=== PATIENT | male | born 1975 | race Caucasian/White ===

== ENCOUNTER → 2017-07-09 15:45 | Outpatient (CLI) | payer MEDICAID, MEDICARE, SELFPAY ==
[2017-07-09 17:19] LABS: Absolute Lymphocyte Count 2.49 X10^3/ul (0.83-4.51); Absolute Neutrophil Count 6.4 X10^3/uL (2.0-7.7); Basophil# 0.04 X10^3/uL; Basophil% 0.4 % (0-1); Hematocrit 49.4 % (40-54); Hemoglobin 16.8 g/dl (13.0-16.5); Lymphocyte # 2.49 X10^3/ul (4.0); Lymphocyte % 25.5 % (19-41); Mean Corpuscular Hgb 30.9 pg (27.0-32.0); Mean Corpuscular Volume 90.8 fL (80-94); Mean Platelet Vol. 10.1 fl (6.2-12.0); Monocyte# 0.67 X10^3/uL; Monocyte% 6.9 % (0-10); Neutrophil # 6.36 X10^3/uL (2.7-7.7); Neutrophil % 65.3 % (47-70); Platelet Count 261 K/mm3 (150-450); RBC Distribution Width CV 14.9 % (11.6-14.6); RBC Distribution Width SD 49.3 fl (35.1-43.9); Red Blood Count 5.44 M/mm3 (4.6-6.2); White Blood Count 9.8 K/mm3 (4.4-11.0)
[2017-07-09 17:21] LABS: POSITIVE COUNT NO; POSITIVE DIFFERENTIAL NO; POSITIVE MORPHOLOGY NO
[2017-07-09 17:52] LABS: ALB/GLOB Ratio 1.1 RATIO (0.9-2.4); AST(SGOT) 29 U/L (15-37); Alanine Aminotransfer ALT/SGPT 43 U/L (16-61); Albumin, Serum 3.7 g/dL (3.2-5.0); Alkaline Phosphatase 61 U/L (45-117); Anion Gap 9 (5-15); BUN 14 mg/dL (7-18); BUN/Creat Ratio 11.9 RATIO (10-20); Calcium,Total 8.3 mg/dL (8.5-10.1); Chloride 104 mmol/L (98-107); Creatinine, Serum 1.18 mg/dL (0.70-1.30); EST Glomerular Filtration Rate 72 mL/min (>60); Est Glom Filt Rate - Afr Amer 88 mL/min (>60); Globulin 3.3 g/dL (2.2-4.2); Glucose 112 mg/dL (74-106); Potassium 3.5 mmol/L (3.5-5.1); Sodium Level 139 mmol/L (136-145)
[2017-07-09 18:27] LABS: HIV - WCH Non-Reactive (Nonreactive)
[2017-07-09 19:23] LABS: Chlamydia Trachomatis by PCR Negative (Negative); Neisserai gonorrhoeae by PCR Negative (Negative); Probe Check PASS; Sample Adequacy Control PASS; Specimen Processing Control PASS
[2017-07-16 11:45] LABS: Rapid Plasmin Reagin (RPR) NONREACTIVE (NONREACTIVE)
== END ==
PROVIDERS: Family Provider Family Medicine; PCP Family Medicine; Visit Provider Family Medicine
DX: Z20.9 Contact with and (suspected) exposure to unspecified communicable disease (principal)
CPT/HCPCS: 36415; 80053; 85025; 86592; 86703; 87491; 87591

== ENCOUNTER 2017-07-10 00:33 | Emergency (ER) | payer MEDICARE, MEDICAID, SELFPAY ==
[2017-07-10 00:34] VITALS: BP 142/88; PULSE 67; RESP 16; TEMP 36.3; O2SAT 99; BMI 23.6
[2017-07-10 01:36] LABS: Mucous, Urine 0 SEEN /hpf (<or=2+); Red Blood Cells-Urine 0 SEEN /hpf (0-5); Squamous Epithelial Cells - UA 0 SEEN /hpf (0-5)
[2017-07-10 01:53] LABS: Color, Urine Yellow (Yellow); Glucose, Dipstick Normal (Normal); Ketone-Dipstick 5 mg/dl (Negative); Leukocyte Esterase-Dipstick 500 /ul (Negative); Nitrite-Dipstick Positive (Negative); Occult Blood-Urine 50 /ul (Negative); Protein-Dipstick 30 mg/dl (Negative); Urine Bilirubin Dipstick Negative (Negative); Urine Clarity Cloudy (Clear); Urine Urobilinogen Normal (Normal)
[2017-07-10 02:06] LABS: Bacteria 2+ /hpf (None Seen); White Blood Cells 50-100 SEEN /hpf (0-5)
--- NOTE | 2017-07-10 02:07 | ED.DCSUM_ITS ---
- ER Visit Summary Date of Service: 07/10/17 Chief Complaint: [] UTI symptoms History of Present Illness: The patient is a 41 M [] complaining of UTI symptoms. Patient reports having a history of multiple repeat UTIs as a result of urethral strictures. No other complaints at this time. Denies fevers. Physical Examination: [] Afebrile, vital signs stable. Abdomen is soft and nontender. Remainder of exam is unremarkable. Test Results: [] Urinalysis positive for UTI. Emergency Department Course and Treatment: [] Patient reports he requires fosfomycin 3 g every 3 days for 3 doses to overcome his UTIs. He will be provided this prescription upon discharge. On serial examination patient reports he needs something immediately and we do not have fosfomycin on formulary in this emergency department. He then request Bactrim despite having a reported allergy to sulfa. He reports him and his urologist used Bactrim with Benadryl and did not have any reaction. He is requesting Bactrim orally in the emerge department as well as Bactrim prescription for home. Treatment Plan: [] Discharge with outpatient antibiotic. Follow-up with PCP. Disposition: [] Discharge, stable. Impression: [] UTI This note was generated with [employer] dictation software. It may contain incorrect words, spelling, and punctuation that were not noted in review of the chart prior to signing ED Disposition - Plan for ED Patient: Disposition: Home or Assisted Living Chief Complaint: Complaint Instructions: ED UTI Cystitis Male Prescriptions: Fosfomycin Tromethamine [Monurol] 3 gm PO DAILY #3 packet Referrals: Arnulfo Medeiros DO [Primary Care Provider] -
--- NOTE | 2017-07-10 02:12 | DCINST.ED_ITS ---
ED Disposition - Plan for ED Patient: Disposition: Home or Assisted Living Chief Complaint: Complaint Instructions: ED UTI Cystitis Male Prescriptions: Fosfomycin Tromethamine [Monurol] 3 gm PO DAILY #3 packet Referrals: Arnulfo Medeiros DO [Primary Care Provider] -
[2017-07-10] MEDS: Smz/Tmp Ds Tablet 1 TABLET PO (02:48)
[2017-07-10 02:49] VITALS: PULSE 84; RESP 18; O2SAT 100
--- NOTE | 2017-07-12 11:06 | ED.RN ---
Pt urine culture reviewed by Dr White. No further action required.
== END 2017-07-10 02:50 | disposition home or self-care (01) ==
PROVIDERS: Emergency Provider Emergency Medicine; Family Provider Family Medicine; PCP Family Medicine
DX: N30.90 Cystitis, unspecified without hematuria (principal); B96.89 Other specified bacterial agents as the cause of diseases classified elsewhere; N35.9 Urethral stricture, unspecified; Z87.440 Personal history of urinary (tract) infections; Z79.899 Other long term (current) drug therapy; Z72.0 Tobacco use
CPT/HCPCS: 81001; 87077; 87086; 87088; 87186; 99283

== ENCOUNTER → 2017-07-13 09:57 | Outpatient (CLI) | payer MEDICARE, MEDICAID, SELFPAY | PROVIDERS: Family Provider Family Medicine; PCP Family Medicine; Visit Provider Family Medicine | DX: Z12.5 Encounter for screening for malignant neoplasm of prostate (principal); R10.2 Pelvic and perineal pain | CPT/HCPCS: 36415; 84153; G0103 ==

== ENCOUNTER → 2017-12-28 12:57 | Outpatient (CLI) | payer MEDICARE, MEDICAID, SELFPAY | PROVIDERS: Family Provider Family Medicine; PCP Family Medicine; Visit Provider Family Medicine | DX: Z00.00 Encounter for general adult medical examination without abnormal findings (principal); R73.9 Hyperglycemia, unspecified; E29.1 Testicular hypofunction; G25.81 Restless legs syndrome; R74.8 Abnormal levels of other serum enzymes; Z20.9 Contact with and (suspected) exposure to unspecified communicable disease; Z79.899 Other long term (current) drug therapy ==

== ENCOUNTER → 2017-12-30 07:49 | Outpatient (CLI) | payer MEDICARE, MEDICAID, SELFPAY ==
[2017-12-30 09:02] LABS: Absolute Lymphocyte Count 2.98 X10^3/ul (0.83-4.51); Absolute Neutrophil Count 3.8 X10^3/uL (2.0-7.7); Basophil# 0.02 X10^3/uL; Basophil% 0.3 % (0-1); Eosinophils% 2.6 % (0-5); Hematocrit 54.5 % (40-54); Hemoglobin 18.6 g/dl (13.0-16.5); Lymphocyte # 2.98 X10^3/ul (4.0); Mean Corp Hgb Conc 34.1 g/gl (32-36); Mean Corpuscular Volume 90.8 fL (80-94); Monocyte# 0.64 X10^3/uL; Monocyte% 8.4 % (0-10); Neutrophil # 3.78 X10^3/uL (2.7-7.7); Neutrophil % 49.4 % (47-70); Platelet Count 179 K/mm3 (150-450); RBC Distribution Width CV 13.7 % (11.6-14.6); RBC Distribution Width SD 45.3 fl (35.1-43.9); White Blood Count 7.6 K/mm3 (4.4-11.0)
[2017-12-30 09:09] LABS: POSITIVE COUNT NO; POSITIVE DIFFERENTIAL NO; POSITIVE MORPHOLOGY NO
[2017-12-30 09:16] LABS: Hemoglobin A1c 5.7 % (4.2-6.3)
[2017-12-30 09:36] LABS: ALB/GLOB Ratio 1.3 RATIO (0.9-2.4); AST(SGOT) 40 U/L (15-37); Alanine Aminotransfer ALT/SGPT 56 U/L (16-61); Albumin, Serum 4.1 g/dL (3.2-5.0); Alkaline Phosphatase 40 U/L (45-117); Anion Gap 4 (5-15); BUN 15 mg/dL (7-18); BUN/Creat Ratio 13.4 RATIO (10-20); Calcium,Total 8.7 mg/dL (8.5-10.1); Chloride 107 mmol/L (98-107); Cholesterol 169 mg/dL (200); Creatinine, Serum 1.12 mg/dL (0.70-1.30); EST Glomerular Filtration Rate 77 mL/min (>60); Est Glom Filt Rate - Afr Amer 93 mL/min (>60); Estradiol 46.9 pg/mL; Globulin 3.1 g/dL (2.2-4.2); Glucose 99 mg/dL (74-106); High Density Lipoprotein 31 mg/dL; Potassium 4.2 mmol/L (3.5-5.1); Protein, Total 7.2 g/dL (6.4-8.2); Sodium Level 140 mmol/L (136-145); Thyroid Stim Hormone (TSH) 1.55 uIU/mL (0.358-3.74); Triglycerides 111 mg/dL; Very Low Density Lipoprotein 22 mg/dL (5-40)
[2017-12-30 13:32] LABS: Chlamydia Trachomatis by PCR Negative (Negative); Neisserai gonorrhoeae by PCR Negative (Negative); Probe Check PASS; Sample Adequacy Control PASS; Specimen Processing Control PASS
[2017-12-31 00:19] LABS: Rapid Plasmin Reagin (RPR) NONREACTIVE (NONREACTIVE)
[2017-12-31 10:54] LABS: HIV - WCH Non-Reactive (Nonreactive)
[2018-01-07 09:57] LABS: Testosterone, Total 1142 ng/dL (264-916)
== END ==
PROVIDERS: Family Provider Family Medicine; PCP Family Medicine; Visit Provider Family Medicine
DX: Z00.00 Encounter for general adult medical examination without abnormal findings (principal); Z20.9 Contact with and (suspected) exposure to unspecified communicable disease; E29.1 Testicular hypofunction; G25.81 Restless legs syndrome; R74.8 Abnormal levels of other serum enzymes; R73.9 Hyperglycemia, unspecified; Z79.899 Other long term (current) drug therapy
CPT/HCPCS: 36415; 80053; 80061; 82670; 83036; 84402; 84403; 84443; 85025; 86592; 86703; 87491; 87591

== ENCOUNTER → 2018-08-04 10:18 | Outpatient (CLI) | payer MEDICARE, SELFPAY ==
[2018-08-04 12:23] LABS: Absolute Neutrophil Count 5.3 X10^3/uL (2.0-7.7); Basophil# 0.02 X10^3/uL; Basophil% 0.2 % (0-1); Eosinophil# 0.07 X10^3/uL; Eosinophils% 0.7 % (0-5); Hemoglobin 16.2 g/dl (13.0-16.5); Lymphocyte % 33.1 % (19-41); Mean Corp Hgb Conc 33.1 g/gl (32-36); Mean Corpuscular Hgb 31.5 pg (27.0-32.0); Mean Corpuscular Volume 95.3 fL (80-94); Mean Platelet Vol. 9.7 fl (6.2-12.0); Monocyte# 0.77 X10^3/uL; Monocyte% 8.2 % (0-10); Neutrophil # 5.34 X10^3/uL (2.7-7.7); Neutrophil % 57.2 % (47-70); Platelet Count 220 K/mm3 (150-450); RBC Distribution Width CV 14.9 % (11.6-14.6); RBC Distribution Width SD 52.2 fl (35.1-43.9); Red Blood Count 5.14 M/mm3 (4.6-6.2); White Blood Count 9.4 K/mm3 (4.4-11.0)
[2018-08-04 12:32] LABS: POSITIVE COUNT NO; POSITIVE DIFFERENTIAL NO; POSITIVE MORPHOLOGY NO
[2018-08-04 12:42] LABS: ALB/GLOB Ratio 1.6 RATIO (0.9-2.4); AST(SGOT) 38 U/L (15-37); Alanine Aminotransfer ALT/SGPT 55 U/L (16-61); Albumin, Serum 4.4 g/dL (3.2-5.0); Alkaline Phosphatase 36 U/L (45-117); Anion Gap 9 (5-15); BUN 15 mg/dL (7-18); BUN/Creat Ratio 14.4 RATIO (10-20); Calcium,Total 8.6 mg/dL (8.5-10.1); Chloride 107 mmol/L (98-107); Cholesterol 193 mg/dL (200); Creatinine, Serum 1.04 mg/dL (0.70-1.30); EST Glomerular Filtration Rate 83 mL/min (>60); Est Glom Filt Rate - Afr Amer 101 mL/min (>60); Globulin 2.8 g/dL (2.2-4.2); Glucose 97 mg/dL (74-106); High Density Lipoprotein 52 mg/dL; Potassium 3.6 mmol/L (3.5-5.1); Protein, Total 7.2 g/dL (6.4-8.2); Sodium Level 140 mmol/L (136-145); Triglycerides 57 mg/dL; Very Low Density Lipoprotein 11 mg/dL (5-40)
[2018-08-04 13:24] LABS: HIV - WCH Non-Reactive (Nonreactive)
[2018-08-04 15:36] LABS: Chlamydia Trachomatis by PCR Negative (Negative); Neisserai gonorrhoeae by PCR Negative (Negative); Probe Check PASS; Sample Adequacy Control PASS; Specimen Processing Control PASS
[2018-08-05 01:32] LABS: Rapid Plasmin Reagin (RPR) NONREACTIVE (NONREACTIVE)
[2018-08-07 20:06] LABS: Testosterone, Free 19.06 ng/dL (5.00-21.00)
[2018-08-08 09:04] LABS: Testosterone, % Free 3.53 % (1.50-4.20); Testosterone, Total 540 ng/dL (264-916)
== END ==
PROVIDERS: Family Provider Family Medicine; PCP Family Medicine; Visit Provider Family Medicine
DX: Z20.9 Contact with and (suspected) exposure to unspecified communicable disease (principal); Z72.51 High risk heterosexual behavior; E29.1 Testicular hypofunction; E78.5 Hyperlipidemia, unspecified; R74.8 Abnormal levels of other serum enzymes; R07.9 Chest pain, unspecified; D58.2 Other hemoglobinopathies; Z79.899 Other long term (current) drug therapy
CPT/HCPCS: 36415; 80053; 80061; 84402; 84403; 84484; 85025; 86592; 86703; 87491; 87591

== ENCOUNTER → 2018-08-30 12:07 | Outpatient (CLI) | payer MEDICARE, OTHER, SELFPAY ==
--- NOTE | 2018-08-30 12:17 | EKG12_ITS ---
Test Reason : CP Blood Pressure : / mmHG Vent. Rate : 062 BPM Atrial Rate : 062 BPM P-R Int : 218 ms QRS Dur : 100 ms QT Int : 400 ms P-R-T Axes : 063 085 052 degrees QTc Int : 406 ms Sinus rhythm with sinus arrhythmia with 1st degree A-V block Otherwise normal ECG Confirmed by TEO SCHUSTER, FEDERICO ([id number]), health editor DOUGLAS JNOES ([id number]) on 09/02/2018 11:37:34 AM Referred By: Arnulfo Medeiros Confirmed By:FEDERICO BRUCE MD
== END ==
PROVIDERS: Family Provider Family Medicine; PCP Family Medicine; Referring Provider Family Medicine; Visit Provider Family Medicine
DX: R07.9 Chest pain, unspecified (principal)
CPT/HCPCS: 93005

== ENCOUNTER 2019-01-10 10:00 | Outpatient (RCR) | payer OTHER, SELFPAY ==
--- NOTE | 2019-01-04 12:39 | HP.PTEVAL ---
Patient's Visit Information SCOTT NAZARIO is a 43 year old M referred to Physical Therapy by Guero Frye MD with a diagnosis of RADICULOPATHY CERVICAL REGION. Date of Evaluation: 01/04/19 Physical Therapist: Carlos Corrales, PT, Cert MDT, OCS - Visit Plan Frequency: 1-2x /Week Duration: 4 Weeks Plan: PT INTERVENTIONS MCENZIE EX'S,POSTURAL EX'S,MANUAL THERAPY ,ICTX 18-22# X15MIN - Subjective Findings: This 43 y/o male presents to physical therapy with cervical radiculopathy. Patient has had pain for 2 years . But past 3 1/2 weeks noticed pain right cervical spine /UT and right. Patient has had injection in shoulder which helped pain. Pateint seen Dr campbell ,tried MEDROL pack ,naproxen,muscle relaxers. Pateint had x-rays cervical DDD . Pateint denies parathesia/tingling. Pateint pain affects sleeping. Patient PIÑA/nausea/tinnutis. Aggravated repeated activity with shoulder ,lifting pushing exercises . Alleviating factors meds rest. Pateint affects job demnads,ADLSs' . Pateint affects QOL. 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 SOCIAL: SINGLE - Pain Right Shoulder Pain Intensity (Out of 10): 3 Pain Intensity Range: 10, N/A Right Neck Pain Intensity (Out of 10): 0 Pain Intensity Range: 10 - Objective POSTURE: rounded shoulders. PALPATION: long biceps tender. NEURO: intact ,reflexes C5-6-7 2/3,MYTOMES INTACT. MMT: 5/5 RTC/DELTOID. CERVICAL ROM: flexion min loss,lteral flexion /rotation min loss,retraction min loss - Special Tests C/S Radiculapathy - Left Upper limb tension test: Negative C/S Radiculapathy - Right Upper limb tension test: Negative C/S Radiculapathy - Left Spurlings: Negative C/S Radiculapathy - Left Cervical distraction: Negative C/S Radiculapathy - Right Cervical distraction: Negative Sharp Ren: Negative Vertebral Artery Test: Negative Alar Ligament Test: Negative Cervical Sitting: Protrusion - Mechanical Response: No effect Cervical Sitting: Protrusion - Symptoms During Testing: No effect Cervical Sitting: Protrusion - Symptoms After Testing: No effect Cervical Sitting: Retraction - Mechanical Response: No effect Cervical Sitting: Retraction - Symptoms During Testing: Decreases Cervical Sitting: Retraction - Symptoms After Testing: Better Cervical Sitting: Retraction-Extension - Mechanical Response: No effect Cerv Sitting: Retraction-Extension - Symptoms During Testing: Decreases Cerv Sitting: Retraction-Extension - Symptoms After Testing: Better R Shoulder External Rotation Lag Test - RC Tear: Negative R Shoulder Supine Impingement Test - RC Tear: Negative R Shoulder Drop Sign - IS Test: Negative R Shoulder Empty Can - SS: Negative R Shoulder Belly Press - SupScap: Negative R Shoulder Neer - Impingement: Negative R Shoulder Mark Willy - Impingement: Negative - Goals Goal 1:: Independant with HEP Goal Time Frame: 2-4 Weeks Goal 2:: Patient to improve posture for ADLS' Goal Time Frame: 2-4 Weeks Goal 3:: Patient to increase cervical ROM for function of recovery Goal Time Frame: 2-4 Weeks Goal 4:: Patient to be d/c to prophrolaxis Goal Time Frame: 2-4 Weeks Goal 5:: Patient to improve neck owestry score by 5 points to improve QOL. Goal Time Frame: 2-4 Weeks - Rehabilitation Potential Physical Therapy Diagnosis: This patient has possible cervical derrangement along with h/o tendonitis of right shoulder. , patient responded well with posture correction,rectraction ,RTC 5/5 ,mytomes intact,flexion increase symptom sright shoulder UT. Rehabilitation Potential: Good - Anticipated Interventions Patient/Client Instruction: Educate patient on: Condition, Plan of Care For the Purpose of:: To decrease pain, To increase ROM, To improve muscle performance and motor function, To improve ability to perform ADL's, To increase tolerance to activity/condition/position, To improve ability of physical actions for home/community/work/leisure, To improve ability to perform tasks related to life management Therapeutic Exercise to Include: Strength training, Postural training, Flexibilty training, Ham Exercises For the Purpose of:: To decrease pain, To increase ROM, To improve muscle performance and motor function, To increase tolerance to activity/condition/position, To improve ability of physical actions for home/community/work/leisure, To improve health of tissue, To decrease soft tissue restriction, To reduce risk of recurrence, To improve ability to perform tasks related to life management Manual Therapy Techniques to Include: Mobilization, Soft tissue mobilization For the Purpose of:: To decrease pain, To increase ROM, To improve health of tissue, To decrease soft tissue restriction TENS: Yes IF ES: Yes Cryotherapy (ice pack, ice massage): Yes Ultrasound (thermal/non thermal): Yes Intermittent cervical traction: Yes - 18-# For the Purpose of:: To decrease pain, To improve nutrient delivery to tissue, To increase oxygenation perfusion, To improve health of tissue, To decrease soft tissue restriction Thank you for the opportunity to evaluate your patient. For Medicare and Medicare HMO plans, please review the plan of care and approve it. It will need to be FAXED BACK to us at [phone] for Medicare purposes. For Medicare only, by signing this I certify the plan of care. Please let me know if there are questions or concerns regarding this plan of care. Physician Signature: Date:
--- NOTE | 2019-03-16 11:51 | HP.PTDCNRP_ITS ---
HP - Discharge Summary (1) - Patient Information SCOTT NAZARIO was seen in my office for initial evaluation on 01/04/19. The following Plan of Care was established for this patient: Initial Frequency: 1-2x /Week Initial Duration: 4 Weeks - Anticipated Interventions Patient/Client Instruction: Educate patient on: Condition, Plan of Care For the Purpose of:: To decrease pain, To increase ROM, To improve muscle pe rformance and motor function, To improve ability to perform ADL's, To increase tolerance to activity/condition/position, To improve ability of physical actions for home/community/work/leisure, To improve ability to perform tasks related to life management Therapeutic Exercise to Include: Strength training, Postural training, Flexibilty training, Ham Exercises For the Purpose of:: To decrease pain, To increase ROM, To improve muscle performance and motor function, To increase tolerance to activity/condition/position, To improve ability of physical actions for home/community/work/leisure, To improve health of tissue, To decrease soft tissue restriction, To reduce risk of recurrence, To improve ability to perform tasks related to life management Manual Therapy Techniques to Include: Mobilization, Soft tissue mobilization For the Purpose of:: To decrease pain, To increase ROM, To improve health of tissue, To decrease soft tissue restriction TENS: Yes IF ES: Yes Cryotherapy (ice pack, ice massage): Yes Ultrasound (thermal/non thermal): Yes Intermittent cervical traction: Yes - 18-22# For the Purpose of:: To decrease pain, To improve nutrient delivery to tissue, To increase oxygenation perfusion, To improve health of tissue, To decrease soft tissue restriction This patient was last seen in our office . Pertinent comments regarding their Physical therapy will appear below: Pateint seen for PT for cervical pain ,and plans to return to for possibel MRI. At this point I will be discontinuing this patient from physical therapy. I would be happy to see this patient again in the future if found appropriate by the physician. Thank you! Carlos Corrales, PT, Cert MDT, OCS
== END 2019-01-10 19:00 | disposition home or self-care (01) ==
LOC: PT 10:00
PROVIDERS: Family Provider Family Medicine; PCP Family Medicine; Referring Provider Orthopaedic Surgery; Visit Provider Orthopaedic Surgery
DX: M54.12 Radiculopathy, cervical region (principal)
CPT/HCPCS: 97012; 97110; 97161

== ENCOUNTER → 2019-06-30 09:02 | Outpatient (CLI) | payer OTHER, SELFPAY ==
[2019-06-30 12:43] LABS: Absolute Lymphocyte Count 2.52 X10^3/uL (0.83-4.51); Absolute Neutrophil Count 4.1 X10^3/uL (2.0-7.7); Basophil# 0.05 X10^3/uL; Basophil% 0.7 % (0-1); Eosinophil# 0.14 X10^3/uL; Eosinophils% 1.9 % (0-5); Hematocrit 52.9 % (40-54); Hemoglobin 17.1 g/dL (13.0-16.5); Lymphocyte # 2.52 X10^3/ul (4.0); Lymphocyte % 33.9 % (19-41); Mean Corp Hgb Conc 32.3 g/dL (32-36); Mean Corpuscular Hgb 31.3 pg (27.0-32.0); Mean Corpuscular Volume 96.7 fL (80-94); Mean Platelet Vol. 9.2 fl (6.2-12.0); Monocyte# 0.63 X10^3/uL; Monocyte% 8.5 % (0-10); NRBC Flagged by Analyzer 0 % (0-5); Neutrophil # 4.07 X10^3/uL (2.7-7.7); Neutrophil % 54.6 % (47-70); Platelet Count 214 K/mm3 (150-450); RBC Distribution Width CV 14.4 % (11.6-14.6); Red Blood Count 5.47 M/mm3 (4.6-6.2); White Blood Count 7.4 K/mm3 (4.4-11.0)
[2019-06-30 13:51] LABS: HIV - WCH Non-Reactive (Nonreactive)
[2019-06-30 14:22] LABS: ALB/GLOB Ratio 1.4 RATIO (0.9-2.4); AST(SGOT) 55 U/L (15-37); Alanine Aminotransfer ALT/SGPT 72 U/L (16-61); Albumin, Serum 4.2 g/dL (3.2-5.0); Alkaline Phosphatase 32 U/L (45-117); Anion Gap 6 (5-15); BUN 18 mg/dL (7-18); BUN/Creat Ratio 16.1 RATIO (10-20); CPK Total, Creatine Kinase 705 U/L (39-308); Calcium,Total 9.1 mg/dL (8.5-10.1); Chloride 106 mmol/L (98-107); Cholesterol 205 mg/dL (200); Creatinine, Serum 1.12 mg/dL (0.70-1.30); EST Glomerular Filtration Rate 76 mL/min (>60); Est Glom Filt Rate - Afr Amer 92 mL/min (>60); Estradiol 22.4 pg/mL; Glucose 89 mg/dL (74-106); High Density Lipoprotein 50 mg/dL; Potassium 3.7 mmol/L (3.5-5.1); Protein, Total 7.2 g/dL (6.4-8.2); Sodium Level 137 mmol/L (136-145); Triglycerides 66 mg/dL; Very Low Density Lipoprotein 13 mg/dL (5-40)
[2019-06-30 17:56] LABS: Chlamydia Trachomatis by PCR Negative (Negative); Neisserai gonorrhoeae by PCR Negative (Negative); Probe Check PASS; Sample Adequacy Control PASS; Specimen Processing Control PASS
[2019-07-03 20:08] LABS: Testosterone, Free 18.23 ng/dL (5.00-21.00)
[2019-07-03 21:08] LABS: Testosterone, % Free 3.17 % (1.50-4.20); Testosterone, Total 575 ng/dL (264-916)
[2019-07-06 03:50] LABS: Rapid Plasmin Reagin (RPR) NONREACTIVE (NONREACTIVE)
== END ==
LOC: LAB.FUTURE 09:04 → BFHLAB 11:34
PROVIDERS: Family Provider Family Medicine; PCP Family Medicine; Visit Provider Family Medicine
DX: E29.1 Testicular hypofunction (principal); R74.8 Abnormal levels of other serum enzymes; Z20.9 Contact with and (suspected) exposure to unspecified communicable disease; Z79.899 Other long term (current) drug therapy
CPT/HCPCS: 36415; 80053; 80061; 82550; 82670; 84402; 84403; 85025; 86592; 86703; 87491; 87591

== ENCOUNTER → 2020-02-12 11:38 | Outpatient (CLI) | payer OTHER, SELFPAY ==
[2020-02-12 15:30] LABS: Absolute Lymphocyte Count 1.04 X10^3/uL (0.83-4.51); Absolute Neutrophil Count 1.8 X10^3/uL (2.0-7.7); Basophil# 0.03 X10^3/uL; Basophil% 0.9 % (0-1); Eosinophil# 0.04 X10^3/uL; Eosinophils% 1.2 % (0-5); Hematocrit 53.4 % (40-54); Lymphocyte # 1.04 X10^3/ul (4.0); Lymphocyte % 32.1 % (19-41); Mean Corp Hgb Conc 33.9 g/dL (32-36); Mean Corpuscular Hgb 32.3 pg (27.0-32.0); Mean Corpuscular Volume 95.2 fL (80-94); Mean Platelet Vol. 11.5 fl (6.2-12.0); Monocyte# 0.32 X10^3/uL; Monocyte% 9.9 % (0-10); NRBC Flagged by Analyzer 0 % (0-5); Neutrophil # 1.78 X10^3/uL (2.7-7.7); Platelet Count 104 K/mm3 (150-450); RBC Distribution Width SD 49.7 fl (35.1-43.9); Red Blood Count 5.61 M/mm3 (4.6-6.2); White Blood Count 3.2 K/mm3 (4.4-11.0)
[2020-02-12 15:44] LABS: Hemoglobin 18.1 g/dL (13.0-16.5)
[2020-02-12 15:50] LABS: Anion Gap 6 (5-15); BUN 18 mg/dL (7-18); BUN/Creat Ratio 13.7 RATIO (10-20); Calcium,Total 8.5 mg/dL (8.5-10.1); Chloride 105 mmol/L (98-107); Creatinine, Serum 1.31 mg/dL (0.70-1.30); EST Glomerular Filtration Rate 63 mL/min (>60); Est Glom Filt Rate - Afr Amer 77 mL/min (>60); Estradiol 21.8 pg/mL; Glucose 113 mg/dL (74-106); Potassium 4.4 mmol/L (3.5-5.1); Sodium Level 136 mmol/L (136-145)
[2020-02-13 09:23] LABS: CPK Total, Creatine Kinase 503 U/L (39-308)
== END ==
PROVIDERS: PCP Family Medicine; Visit Provider Family Medicine
DX: E29.1 Testicular hypofunction (principal); Z79.899 Other long term (current) drug therapy; Z51.81 Encounter for therapeutic drug level monitoring
CPT/HCPCS: 36415; 80048; 82550; 82670; 83003; 84402; 84403; 84484; 85025

== ENCOUNTER → 2020-02-14 16:02 | Outpatient (CLI) | payer OTHER, SELFPAY ==
[2020-02-13 08:54] VITALS: BMI 23.6
[2020-02-14 16:54] LABS: Absolute Lymphocyte Count 4.09 X10^3/uL (0.83-4.51); Absolute Neutrophil Count 3.7 X10^3/uL (2.0-7.7); Basophil# 0.12 X10^3/uL; Basophil% 1.4 % (0-1); Eosinophil# 0.07 X10^3/uL; Eosinophils% 0.8 % (0-5); Hematocrit 50.2 % (40-54); Hemoglobin 17.1 g/dL (13.0-16.5); Lymphocyte # 4.09 X10^3/ul (4.0); Lymphocyte % 46.7 % (19-41); Mean Corp Hgb Conc 34.1 g/dL (32-36); Mean Corpuscular Hgb 31.7 pg (27.0-32.0); Mean Corpuscular Volume 93.1 fL (80-94); Mean Platelet Vol. 10.2 fl (6.2-12.0); NRBC Flagged by Analyzer 0 % (0-5); Neutrophil # 3.71 X10^3/uL (2.7-7.7); Neutrophil % 42.4 % (47-70); POSITIVE MORPHOLOGY YES; Platelet Count 128 K/mm3 (150-450); RBC Distribution Width CV 13.8 % (11.6-14.6); RBC Distribution Width SD 47.6 fl (35.1-43.9); Red Blood Count 5.39 M/mm3 (4.6-6.2); White Blood Count 8.8 K/mm3 (4.4-11.0)
[2020-02-14 16:56] LABS: Differential Indicated SCAN CRITERIA MET
[2020-02-14 17:19] LABS: Differential Comment SCANNED
[2020-02-14 17:20] LABS: Erythrocyte Sedimentation Rate 7 mm/hr (0-15)
[2020-02-14 17:49] LABS: CPK Total, Creatine Kinase 494 U/L (39-308); CRP 4.58 mg/L (0.0-3.0)
[2020-02-14 19:29] LABS: HIV - WCH Non-Reactive (Nonreactive)
== END ==
PROVIDERS: PCP Family Medicine; Visit Provider Family Medicine
DX: D72.819 Decreased white blood cell count, unspecified (principal); R74.8 Abnormal levels of other serum enzymes; Z20.9 Contact with and (suspected) exposure to unspecified communicable disease
CPT/HCPCS: 36415; 82550; 85025; 85652; 86140; 86703

== ENCOUNTER 2020-04-29 10:13 | Day surgery (SDC) | payer OTHER, SELFPAY ==
[2020-02-13 08:54] VITALS: BMI 23.6
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
[2020-04-26 15:41] LABS: Probe Check PASS; Specimen Processing Control PASS
[2020-04-29 10:42] VITALS: BP 141/68; PULSE 84; RESP 16; TEMP 37.4; O2SAT 97; BMI 26.4
[2020-04-29] MEDS: Lactated Ringers 1,000 ML 100 ML IV (11:05)
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
[2020-04-29 11:37] VITALS: BP 115/75; BP 141/68; PULSE 86; RESP 16; TEMP 36.6; O2SAT 96
--- NOTE | 2020-04-29 11:38 | OP.CCLET_ITS ---
04/29/2020 Arnulfo Medeiros [address] [place] [address] Re : Colonoscopy procedure for Michael Pina Dear Dr. Medeiros This procedure was performed on Wednesday, April 29, 2020. My impressions and recommendations are as follows: Impressions : - Non-bleeding internal hemorrhoids. - The examination was otherwise normal. - No specimens collected. Recommendations : - Discharge patient to home. - Resume previous diet. - Continue present medications. - Repeat colonoscopy in 10 years for screening purposes. - Return to primary care physician (date not yet determined). My findings are described in the full procedure note, which is enclosed. If I can be of further assistance, please feel free to contact me at Doctor phone number(s): , Fax: [phone], Work: . Sincerely, MD Raymundo Hopkins MD 04/29/2020 11:37:48 AM This report has been signed electronically.
--- NOTE | 2020-04-29 11:38 | OP.COLON_ITS ---
Patient Name: Michael Pina Procedure Date: 04/29/2020 11:09 AM Date of : 1975 Age: 44 Procedure: Colonoscopy Indications: Rectal bleeding Providers: Raymundo Rao MD Referring MD: Arnulfo Medeiros Medicines: See the Anesthesia note for documentation of the administered medications Patient Profile: This is a 44 year old male. Refer to note in patient chart for documentation of history and physical. Last Colonoscopy: none. The patient's first colonoscopy is today. Complications: No immediate complications. Procedure: Pre-Anesthesia Assessment: - Prior to the procedure, a History and Physical was performed, and patient medications and allergies were reviewed. The patient's tolerance of previous anesthesia was also reviewed. The risks and benefits of the procedure and the sedation options and risks were discussed with the patient. All questions were answered, and informed consent was obtained. Prior Anticoagulants: The patient has taken no previous anticoagulant or antiplatelet agents. ASA Grade Assessment: II - A patient with mild systemic disease. After reviewing the risks and benefits, the patient was deemed in satisfactory condition to undergo the procedure. After I obtained informed consent, the scope was passed under direct vision. Throughout the procedure, the patient's blood pressure, pulse, and oxygen saturations were monitored continuously. The colonoscope was introduced through the anus and advanced to the cecum, identified by appendiceal orifice and ileocecal valve. The colonoscopy was performed without difficulty. The patient tolerated the procedure well. The quality of the bowel preparation was good. Scope In: 11:21:29 AM Scope Withdrawal Time 0 hours 6 minutes 4 seconds Scope Out: 11:32:42 AM Total Procedure Duration Time 0 hours 11 minutes 13 seconds Findings: Non-bleeding internal hemorrhoids were found during retroflexion. The hemorrhoids were mild and small. The exam was otherwise without abnormality. Impression: - Non-bleeding internal hemorrhoids. - The examination was otherwise normal. - No specimens collected. Recommendation: - Discharge patient to home. - Resume previous diet. - Continue present medications. - Repeat colonoscopy in 10 years for screening purposes. - Return to primary care physician (date not yet determined). Procedure Code(s): --- Professional --- 97487, Colonoscopy, flexible; diagnostic, including collection of specimen(s) by brushing or washing, when performed (separate procedure) Diagnosis Code(s): --- Professional --- K64.8, Other hemorrhoids K62.5, Hemorrhage of anus and rectum CPT copyright 2017 [employer]. All rights reserved. The codes documented in this report are preliminary and upon invoice coder review may be revised to meet current compliance requirements. MD Raymundo Hopkins MD 04/29/2020 11:37:48 AM This report has been signed electronically. Number of Addenda: 0 Note Initiated On: 04/29/2020 11:09 AM
[2020-04-29 11:40] VITALS: BP 104/74; BP 141/68; PULSE 87; RESP 16; O2SAT 96
[2020-04-29 11:45] VITALS: BP 118/71; BP 141/68; PULSE 86; RESP 16; O2SAT 95
[2020-04-29 11:50] VITALS: BP 114/74; BP 141/68; PULSE 85; RESP 16; TEMP 36.5; O2SAT 97
[2020-04-29 12:02] VITALS: BP 141/68
== END 2020-04-29 12:22 | disposition home or self-care (01) ==
LOC: EN 10:14 → AC 10:15
PROVIDERS: Anesthesiology; PCP Family Medicine; Referring Provider Family Medicine; Visit Provider Surgery
PROC: 0DJD8ZZ Inspection of Lower Intestinal Tract, Via Natural or Artificial Opening Endoscopic (ICD-10-PCS; CPT 45378; principal; 2020-04-29 11:10)
DX: K64.8 Other hemorrhoids (principal); K91.2 Postsurgical malabsorption, not elsewhere classified; F41.9 Anxiety disorder, unspecified; H55.01 Congenital nystagmus; G25.81 Restless legs syndrome; K21.9 Gastro-esophageal reflux disease without esophagitis; J45.909 Unspecified asthma, uncomplicated; G47.00 Insomnia, unspecified; F17.210 Nicotine dependence, cigarettes, uncomplicated; Z20.828 Contact with and (suspected) exposure to other viral communicable diseases; Z79.51 Long term (current) use of inhaled steroids; Z79.82 Long term (current) use of aspirin; Z79.899 Other long term (current) drug therapy
CPT/HCPCS: 45378; 87426; 87635; C9803; J7120; J1610; J2405; U0002

== ENCOUNTER → 2020-05-28 09:09 | Outpatient (CLI) | payer OTHER, SELFPAY ==
[2020-04-29 10:42] VITALS: BMI 26.4
== END ==
PROVIDERS: PCP Family Medicine; Visit Provider Family Medicine
DX: U07.1 COVID-19 (principal)
CPT/HCPCS: 36415; 86769

== ENCOUNTER → 2021-05-29 10:37 | Outpatient (CLI) | payer OTHER, SELFPAY | PROVIDERS: PCP Family Medicine; Visit Provider Physician Assistant Medical | DX: Z11.52 Encounter for screening for COVID-19 (principal) | CPT/HCPCS: 87635; U0003; U0005 ==

== ENCOUNTER 2021-07-14 07:40 | Outpatient (CLI) | payer MEDICARE, SELFPAY ==
--- NOTE | 2021-07-14 07:43 | ECHOD_ITS ---
Reason For Study: DYSPNEA Procedure This was a 2D Doppler, Color Flow transthoracic echocardiogram. Exam performed in department. Left Ventricle Normal LV size. Left ventricular systolic function is normal. The estimated ejection fraction is 65 %. Transmitral doppler flow suggestive of impaired relaxation of left ventricle. No regional wall motion abnormalities noted. Right Ventricle Normal RV size. Normal systolic function. Atria Normal left atrium. Normal right atrium. No doppler evidence for ASD. Mitral Valve There is no mitral annular calcification. Normal mitral valve. Trivial mitral valve insufficiency. Tricuspid Valve Normal tricuspid valve. Trivial tricuspid valve insufficiency. Unable to estimate RV systolic pressure due to insufficient tricuspid regurgitant envelope. Aortic Valve Trisinus/trileaflet aortic valve. Mild diffuse aortic valve thickening. Pulmonic Valve The pulmonic valve is not well visualized. Trivial pulmonic valve insufficiency. Great Vessels Borderline enlarged aortic root. Pericardium/Pleural No pericardial effusion. MMode/2D Measurements & Calculations LVIDd: 4.4 cm IVSd: 1.1 cm Ao root diam: 3.9 cm LVIDs: 2.8 cm LVPWd: 1.1 cm RVDd: 3.4 cm FS: 36.1 % LAV(MOD-bp): 35.3 ml LVAd ap4: 27.1 cm2 LVAd ap2: 27.6 cm2 LAV(MOD-bp) Indexed: 17.3 ml/m2 LVLd ap4: 8.2 cm LVLd ap2: 8.0 cm LAV(MOD-sp2): 34.6 ml EDV(MOD-sp4): 73.2 ml EDV(MOD-sp2): 79.9 ml LAV(MOD-sp4): 33.4 ml EDV(sp4-el): 75.8 ml EDV(sp2-el): 80.7 ml LVAs ap4: 15.4 cm2 LVAs ap2: 14.3 cm2 LVLs ap4: 6.2 cm LVLs ap2: 6.0 cm ESV(MOD-sp4): 31.4 ml ESV(MOD-sp2): 30.4 ml ESV(sp4-el): 32.6 ml ESV(sp2-el): 28.9 ml EF(MOD-sp4): 57.1 % EF(MOD-sp2): 61.9 % EF(sp4-el): 57.0 % SV(MOD-sp4): 41.8 ml SV(MOD-sp2): 49.5 ml SV(sp4-el): 43.2 ml LA dimension(2D): 2.6 cm LA A4 area: 13.8 cm2 RA A4 area: 13.6 cm2 Doppler Measurements & Calculations MV E max ken: 55.1 cm/sec Lat Peak E' Ken: 11.9 cm/sec Med Peak E' Ken: 7.3 cm/sec MV A max ken: 74.8 cm/sec E/E' lat: 4.6 E/E' med: 7.5 MV E/A: 0.74 Ao V2 max: 154.5 cm/sec LV V1 max: 137.4 cm/sec PA V2 max: 112.8 cm/sec Ao max P.6 mmHg LV V1 max P.5 mmHg PI end-d ken: 141.5 cm/sec ECHO/Echo Complete Interpretation Summary Left ventricular systolic function is normal. The estimated ejection fraction is 65 %. Trivial mitral valve insufficiency. Trivial tricuspid valve insufficiency. Mild diffuse aortic valve thickening. Trivial pulmonic valve insufficiency. Borderline enlarged aortic root. Unable to estimate RV systolic pressure due to insufficient tricuspid regurgita nt envelope. Transmitral doppler flow suggestive of impaired relaxation of left ventricle Ordering Physician: Arnulfo Medeiros Referring Physician: Arnulfo Medeiros Performed By: Ruby Ruano, [place], RVT
== END 2021-07-14 23:59 | disposition home or self-care (01) ==
LOC: CVS 07:41
PROVIDERS: PCP Family Medicine; Referring Provider Family Medicine; Visit Provider Family Medicine
DX: R06.00 Dyspnea, unspecified (principal)
CPT/HCPCS: 93306

== ENCOUNTER 2021-07-17 11:28 | Outpatient (CLI) | payer SELFPAY ==
[2021-07-17 12:01] LABS: Troponin-I HS 7 pg/mL (3.0-78.0)
== END 2021-07-17 23:59 | disposition home or self-care (01) ==
PROVIDERS: PCP Family Medicine; Referring Provider Family Medicine; Visit Provider Family Medicine
DX: I10 Essential (primary) hypertension (principal); R00.0 Tachycardia, unspecified
CPT/HCPCS: 36415; 84484

== ENCOUNTER 2021-10-08 09:30 | Emergency (ER) | payer MEDICARE, MEDICAID, SELFPAY ==
[2021-10-08 09:34] VITALS: BP 146/101; PULSE 64; RESP 17; TEMP 36.7; O2SAT 99; BMI 24.5
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
[2021-10-08] MEDS: oxyCODONE 5 MG Tablet PO (10:00)
--- NOTE | 2021-10-08 10:05 | RAD_ITS ---
STUDY: X-RAY - LUMBAR SPINE REASON FOR EXAM: Male, 45 years old. Paresthesia TECHNIQUE: 2 view(s) of the lumbar spine were obtained. COMPARISON: None FINDINGS: Normal lumbar lordosis. There is a dextroscoliosis of the lumbar spine. There is a normal alignment of the vertebrae. Normal vertebral bodies and endplates. Mild degree of disc space narrowing at the L4-L5 and L5-S1 level. Surgical clips are seen in the left groin. RAD/Lumbar Spine 2 or 3 Views IMPRESSION: Degenerative changes of the spine, as detailed above. Dextroscoliosis. Electronically Signed: Nick Klein MD at 10:26 EDT ,
--- NOTE | 2021-10-08 10:05 | RAD_ITS ---
STUDY: X-RAY - RIGHT KNEE REASON FOR EXAM: Male, 45 years old. Knee pain following a fall. TECHNIQUE: 4 view(s) of the knee. COMPARISON: None. FINDINGS: Normal visualized distal femur. Normal visualized proximal tibia and fibula. Normal proximal tibiofibular articulation. Normal medial femorotibial compartment. Normal lateral femorotibial compartment. Normal patellofemoral articulation. Prepatellar soft tissue swelling. RAD/Knee 4 or More Views IMPRESSION: Prepatellar soft tissue swelling. Electronically Signed: Nick Klein MD at 10:25 EDT ,
[2021-10-08 11:13] VITALS: BP 136/98; PULSE 62; RESP 16; O2SAT 100
[2021-10-08] MEDS: Clindamycin HCl 150 MG Capsule 450 MG PO (11:29)
== END 2021-10-08 11:34 | disposition home or self-care (01) ==
PROVIDERS: Emergency Provider Student in an Organized Health Care Education/Training Program; PCP Family Medicine; Visit Provider Student in an Organized Health Care Education/Training Program
DX: S80.01XA Contusion of right knee, initial encounter (principal); S80.211A Abrasion, right knee, initial encounter; R20.2 Paresthesia of skin; F17.210 Nicotine dependence, cigarettes, uncomplicated; L03.90 Cellulitis, unspecified; W10.9XXA Fall (on) (from) unspecified stairs and steps, initial encounter
CPT/HCPCS: 72100; 73564; 99282

== ENCOUNTER 2021-10-17 15:39 | Emergency (ER) | payer MEDICARE, MEDICAID, SELFPAY ==
[2021-10-17 15:40] VITALS: BP 132/86; PULSE 85; RESP 14; TEMP 36.8; O2SAT 97; BMI 25.0
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
[2021-10-17] MEDS: HYDROmorphone 0.5 MG/0.5 ML SYRINGE IM (17:05)
== END 2021-10-17 17:30 | disposition home or self-care (01) ==
LOC: ED 16:49
PROVIDERS: Emergency Provider Emergency Medicine; PCP Family Medicine; Visit Provider Emergency Medicine
DX: S82.001A Unspecified fracture of right patella, initial encounter for closed fracture (principal); S82.141A Displaced bicondylar fracture of right tibia, initial encounter for closed fracture; W19.XXXA Unspecified fall, initial encounter; R19.7 Diarrhea, unspecified; J45.909 Unspecified asthma, uncomplicated; K21.9 Gastro-esophageal reflux disease without esophagitis; F17.210 Nicotine dependence, cigarettes, uncomplicated
CPT/HCPCS: 96372; 99283

== ENCOUNTER → 2021-11-04 | Outpatient (CLI) | payer MEDICARE, SELFPAY ==
[2021-11-04 13:02] LABS: Color, Urine Straw (Yellow); Glucose, Dipstick Normal (Normal); Ketone-Dipstick Negative (Negative); Leukocyte Esterase-Dipstick Negative /ul (Negative); Nitrite-Dipstick Negative (Negative); Occult Blood-Urine Negative /ul (Negative); Protein-Dipstick Negative (Negative); Urine Bilirubin Dipstick Negative (Negative); Urine Clarity Clear (Clear); Urine Urobilinogen Normal (Normal)
[2021-11-04 13:12] LABS: Absolute Lymphocyte Count 1.96 X10^3/uL (0.83-4.51); Absolute Neutrophil Count 3.7 X10^3/uL (2.0-7.7); Basophil# 0.03 X10^3/uL; Basophil% 0.5 % (0-1); Eosinophil# 0.13 X10^3/uL; Hematocrit 46.9 % (40-54); Hemoglobin 16.1 g/dL (13.0-16.5); Lymphocyte # 1.96 X10^3/ul (0.83-4.51); Lymphocyte % 30.4 % (19-41); Mean Corp Hgb Conc 34.3 g/dL (32-36); Mean Corpuscular Hgb 31.9 pg (27.0-32.0); Mean Corpuscular Volume 93.1 fL (80-94); Mean Platelet Vol. 9.3 fl (6.2-12.0); Monocyte% 9.3 % (0-10); NRBC Flagged by Analyzer 0 % (0-5); Neutrophil # 3.69 X10^3/uL (2.7-7.7); Neutrophil % 57.3 % (47-70); Platelet Count 228 K/mm3 (150-450); RBC Distribution Width CV 12.8 % (11.6-14.6); Red Blood Count 5.04 M/mm3 (4.6-6.2); White Blood Count 6.4 K/mm3 (4.4-11.0)
[2021-11-10 11:26] LABS: Testosterone, Free 10.59 ng/dL (5.00-21.00)
[2021-11-10 18:11] LABS: Testosterone, % Free 2.04 % (1.50-4.20); Testosterone, Total 519 ng/dL (264-916)
== END | disposition home or self-care (01) ==
LOC: LAB 12:36
PROVIDERS: PCP Family Medicine; Visit Provider Family Medicine
DX: R30.0 Dysuria (principal); E29.1 Testicular hypofunction; Z51.81 Encounter for therapeutic drug level monitoring
CPT/HCPCS: 36415; 81002; 84402; 84403; 85025; 87086

== ENCOUNTER → 2022-05-28 | Outpatient (CLI) | payer MEDICARE, OTHER, SELFPAY ==
--- NOTE | 2022-05-28 12:47 | CT_ITS ---
INDICATION: EDEMA/LEG PAIN EXAMINATION: CT ABDOMEN AND PELVIS WITH CONTRAST - CT Abdomen And Pelvis W/ Contrast Injection TECHNIQUE: Helically acquired images were obtained of the abdomen and pelvis following IV contrast. A radiation dose optimization technique was used for this scan. IV Contrast dosage and agent: 100 cc [id number] Oral contrast: Yes COMPARISON: 12/28/2016 FINDINGS: LOWER CHEST: Lung bases are clear. No cardiomegaly or pericardial effusion. LIVER: Small cyst left lobe. No concerning focal mass. GALLBLADDER AND BILIARY TREE: No calcified gallstones. No gallbladder distension or wall edema. No intra- or extrahepatic biliary ductal dilation. PANCREAS: No focal cystic or solid mass. SPLEEN: Normal size without focal cystic or solid mass. ADRENAL GLANDS: No nodules. KIDNEYS AND URETERS: Normal renal size and position. No hydronephrosis. PERITONEUM: No ascites or free air. BOWEL: Normal appendix. No stomach or bowel distension. Diffusely increased colonic fecal burden. LYMPH NODES: Stable right inguinal adenopathy. VESSELS: Aorta is non-dilated. URINARY BLADDER: Unremarkable. REPRODUCTIVE ORGANS: Stable surgical changes to the penis. No pelvic masses. 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 Changes from prior left inguinal herniorrhaphy. BONES: No acute or aggressive abnormality CT/Abdomen/Pelvis WITH Contrast IMPRESSION: No acute findings in the abdomen or pelvis. Colonic fecal burden consistent with clinical constipation. Stable right inguinal adenopathy. Electronically Signed: Regan Webb MD at 16:26 EST ,
[2022-05-28 15:03] VITALS: BP 130/94; PULSE 86; RESP 14; TEMP 36.9; O2SAT 97; BMI 28.1
[2022-05-28] MEDS: proMETHazine 25 MG/ML Syringe IM (15:06)
== END | disposition home or self-care (01) ==
PROVIDERS: PCP Family Medicine; Referring Provider Family Medicine; Visit Provider Family Medicine
DX: R10.9 Unspecified abdominal pain (principal); M79.661 Pain in right lower leg; M79.89 Other specified soft tissue disorders; R21 Rash and other nonspecific skin eruption; S81.801A Unspecified open wound, right lower leg, initial encounter; Z77.018 Contact with and (suspected) exposure to other hazardous metals
CPT/HCPCS: 36415; 74177; 80048; 85025; 87070; 87205; Q9967

== ENCOUNTER → 2022-05-28 | Outpatient (CLI) | payer MEDICARE, SELFPAY ==
[2022-05-28 15:18] LABS: Anion Gap 8 (5-15); BUN 16 mg/dL (7-18); BUN/Creat Ratio 12.5 RATIO (10-20); Calcium,Total 9.6 mg/dL (8.5-10.1); Chloride 102 mmol/L (98-107); Creatinine, Serum 1.28 mg/dL (0.70-1.30); EST Glomerular Filtration Rate 64 mL/min (>60); Est Glom Filt Rate - Afr Amer 78 mL/min (>60); Glucose 112 mg/dL (74-106); Sodium Level 137 mmol/L (136-145)
[2022-05-28 15:20] LABS: Absolute Lymphocyte Count 0.78 X10^3/uL (0.83-4.51); Absolute Neutrophil Count 8.8 X10^3/uL (2.0-7.7); Basophil# 0.08 X10^3/uL; Basophil% 0.8 % (0-1); Eosinophil# 0.01 X10^3/uL; Eosinophils% 0.1 % (0-5); Hematocrit 49.7 % (40-54); Hemoglobin 16.5 g/dL (13.0-16.5); Lymphocyte # 0.78 X10^3/ul (0.83-4.51); Lymphocyte % 7.5 % (19-41); Mean Corp Hgb Conc 33.2 g/dL (32-36); Mean Corpuscular Hgb 31.9 pg (27.0-32.0); Mean Corpuscular Volume 96.1 fL (80-94); Mean Platelet Vol. 9.6 fl (6.2-12.0); Monocyte# 0.56 X10^3/uL; Monocyte% 5.4 % (0-10); NRBC Flagged by Analyzer 0 % (0-5); Neutrophil # 8.75 X10^3/uL (2.7-7.7); Platelet Count 320 K/mm3 (150-450); RBC Distribution Width CV 14.4 % (11.6-14.6); RBC Distribution Width SD 50.5 fl (35.1-43.9); Red Blood Count 5.17 M/mm3 (4.6-6.2); White Blood Count 10.4 K/mm3 (4.4-11.0)
[2022-06-05 17:32] LABS: Arsenic 7245 7 ug/L (0-9); Lead, Blood < 1.0 ug/dL (0.0-3.4); Mercury, Blood 85324 2.4 ug/L (0.0-14.9)
== END | disposition home or self-care (01) ==
LOC: BFHLAB 11:48
PROVIDERS: PCP Family Medicine; Visit Provider Family Medicine
DX: R21 Rash and other nonspecific skin eruption (principal); S81.801A Unspecified open wound, right lower leg, initial encounter; Z77.018 Contact with and (suspected) exposure to other hazardous metals
CPT/HCPCS: 36415; 80048; 85025; 87070; 87205

== ENCOUNTER 2022-06-02 13:54 | Outpatient (CLI) | payer MEDICARE, MEDICAID, SELFPAY ==
[2022-06-02 13:59] VITALS: BP 133/84; PULSE 94; RESP 18; TEMP 36.6; O2SAT 97; BMI 28.1
[2022-06-02] MEDS: 0.9% NaCl IVPB Med Flush (250 mL) 15 ML IV (15:29)
[2022-06-02] MEDS: 0.9% Saline Lock 10 ML Syringe IV ×2 (15:29→16:35)
== END 2022-06-02 23:59 | disposition home or self-care (01) ==
PROVIDERS: PCP Family Medicine; Referring Provider Family Medicine; Visit Provider Family Medicine
DX: L03.115 Cellulitis of right lower limb (principal); Z79.899 Other long term (current) drug therapy
CPT/HCPCS: 96365; 96367; 36569; 96368; J7050

== ENCOUNTER → 2022-06-02 | Outpatient (CLI) | payer MEDICARE, SELFPAY ==
[2022-06-02 15:10] VITALS: BP 133/74; PULSE 79; RESP 16; TEMP 36.1; O2SAT 94; BMI 27.2
== END | disposition home or self-care (01) ==
LOC: MEDOUTP 15:01
PROVIDERS: PCP Family Medicine; Referring Provider Family Medicine; Visit Provider Family Medicine
DX: L03.115 Cellulitis of right lower limb (principal)
CPT/HCPCS: 96368

== ENCOUNTER 2022-06-03 07:29 | Outpatient (CLI) | payer MEDICARE, MEDICAID, SELFPAY ==
[2022-06-03] MEDS: 0.9% NaCl PICC Flush IV ×4 (07:55→20:17)
[2022-06-03] MEDS: 0.9% NaCl IVPB Med Flush (250 mL) 15 ML IV (07:56)
[2022-06-03 07:58] VITALS: BP 105/74; PULSE 63; RESP 16; TEMP 36.3; O2SAT 94
[2022-06-03 09:13] VITALS: BP 108/66; PULSE 67; RESP 16
[2022-06-03 19:00] VITALS: BP 117/71; PULSE 81; RESP 16; TEMP 36.7; O2SAT 99
[2022-06-03 20:19] VITALS: BP 120/68; PULSE 75
== END 2022-06-03 23:59 | disposition home or self-care (01) ==
PROVIDERS: PCP Family Medicine; Referring Provider Family Medicine; Visit Provider Family Medicine
DX: L03.115 Cellulitis of right lower limb (principal)
CPT/HCPCS: 96365; 96366 ×2; 96368; J7050; A4216

== ENCOUNTER → 2022-06-04 | Outpatient (CLI) | payer MEDICARE, MEDICAID, SELFPAY ==
[2022-06-04] MEDS: 0.9% NaCl IVPB Med Flush (250 mL) 15 ML IV (07:59)
[2022-06-04] MEDS: 0.9% NaCl PICC Flush IV ×6 (08:07→21:19)
[2022-06-04 08:09] VITALS: BP 114/70; PULSE 82; RESP 14; TEMP 36.2; O2SAT 99
[2022-06-04 08:22] LABS: Vancomycin, Trough Level 4.6 ug/mL (5.0-15.0)
[2022-06-04 11:39] LABS: Vancomycin, Peak Level 13.5 ug/mL
[2022-06-04 19:13] VITALS: BP 115/71; PULSE 79; RESP 16; TEMP 37.2; O2SAT 97
[2022-06-04 21:20] VITALS: BP 112/79; PULSE 74; RESP 16; TEMP 36.7
== END | disposition home or self-care (01) ==
LOC: MEDOUTP 07:52
PROVIDERS: PCP Family Medicine; Referring Provider Family Medicine; Visit Provider Family Medicine
DX: L03.115 Cellulitis of right lower limb (principal)
CPT/HCPCS: 96365; 96366 ×2; 36592; 80202; 96368; J7040; J7050; A4216

== ENCOUNTER → 2022-06-05 | Outpatient (CLI) | payer MEDICARE, MEDICAID, SELFPAY ==
[2022-06-05] MEDS: 0.9% NaCl PICC Flush IV ×4 (07:53→21:49)
[2022-06-05 08:01] VITALS: BP 119/71; PULSE 76; RESP 16; TEMP 36.4; O2SAT 97
[2022-06-05 10:24] VITALS: BP 112/68; PULSE 68; RESP 16; TEMP 36.4; O2SAT 97
[2022-06-05 19:13] VITALS: BP 105/64; PULSE 78; RESP 16; TEMP 36.6; O2SAT 98; BMI 27.2
[2022-06-05 21:35] VITALS: BP 118/75; PULSE 81; RESP 16; TEMP 36.4; O2SAT 97
== END | disposition home or self-care (01) ==
LOC: MEDOUTP 07:42
PROVIDERS: PCP Family Medicine; Referring Provider Family Medicine; Visit Provider Family Medicine
DX: L03.115 Cellulitis of right lower limb (principal)
CPT/HCPCS: 96365; 96366 ×4; 96368; J7040; A4216

== ENCOUNTER → 2022-06-06 | Outpatient (CLI) | payer MEDICARE, MEDICAID, SELFPAY ==
[2022-06-06] MEDS: 0.9% NaCl PICC Flush IV ×5 (07:55→21:33)
[2022-06-06 08:21] VITALS: BP 125/80; PULSE 70; TEMP 36.4; O2SAT 97
[2022-06-06 09:57] LABS: Vancomycin, Trough Level 12.7 ug/mL (5.0-15.0)
[2022-06-06 10:26] VITALS: BP 117/87; PULSE 68; O2SAT 95
[2022-06-06 19:10] VITALS: BP 122/70; PULSE 65; RESP 16; TEMP 35.9; O2SAT 96; BMI 27.2
[2022-06-06 21:29] VITALS: BP 133/73; PULSE 63; RESP 16; TEMP 36.3; O2SAT 96
== END | disposition home or self-care (01) ==
LOC: MEDOUTP 06-08 08:03
PROVIDERS: PCP Family Medicine; Referring Provider Family Medicine; Visit Provider Family Medicine
DX: L03.115 Cellulitis of right lower limb (principal)
CPT/HCPCS: 96365; 96366 ×4; 36592; 80202; 96368; J7040; A4216

== ENCOUNTER → 2022-06-07 | Outpatient (CLI) | payer MEDICARE, MEDICAID, SELFPAY ==
[2022-06-07] MEDS: 0.9% NaCl PICC Flush IV ×5 (08:44→21:25)
[2022-06-07 08:48] VITALS: BP 127/78; PULSE 72; RESP 16; TEMP 36.4; O2SAT 99
[2022-06-07 11:05] VITALS: BP 118/75; PULSE 75; RESP 16
[2022-06-07 19:08] VITALS: BP 115/72; PULSE 85; RESP 16; TEMP 36.4; O2SAT 98; BMI 27.2
[2022-06-07 21:28] VITALS: BP 126/66; PULSE 74; RESP 16; TEMP 36.3; O2SAT 96
== END | disposition home or self-care (01) ==
LOC: MEDOUTP 06-08 08:02
PROVIDERS: PCP Family Medicine; Referring Provider Family Medicine; Visit Provider Family Medicine
DX: L03.115 Cellulitis of right lower limb (principal)
CPT/HCPCS: 96365; 96366 ×4; 96368; J7040; A4216

== ENCOUNTER → 2022-06-08 | Outpatient (CLI) | payer MEDICARE, MEDICAID, SELFPAY ==
[2022-06-08] MEDS: 0.9% NaCl PICC Flush IV ×6 (07:52→21:29)
[2022-06-08 07:56] VITALS: BP 132/77; PULSE 80; RESP 16; TEMP 36.5; O2SAT 98; BMI 27.2
[2022-06-08 10:26] VITALS: BP 130/71; PULSE 74; RESP 16
[2022-06-08 19:16] VITALS: BP 119/74; PULSE 100; RESP 16; TEMP 36.9; O2SAT 98; BMI 27.2
[2022-06-08 21:32] VITALS: BP 112/75; PULSE 72; RESP 14; TEMP 36.4; O2SAT 98
== END | disposition home or self-care (01) ==
PROVIDERS: PCP Family Medicine; Referring Provider Family Medicine; Visit Provider Family Medicine
DX: L03.115 Cellulitis of right lower limb (principal)
CPT/HCPCS: 96365; 96366 ×4; 96368; J7040; A4216

== ENCOUNTER → 2022-06-09 | Outpatient (CLI) | payer MEDICARE, MEDICAID, SELFPAY ==
[2022-06-09] MEDS: 0.9% NaCl PICC Flush IV ×7 (07:50→21:19)
[2022-06-09 08:05] VITALS: BP 110/74; PULSE 74; RESP 16; TEMP 36.7; O2SAT 99
[2022-06-09 19:01] VITALS: BP 139/96; PULSE 87; RESP 16; TEMP 37; O2SAT 99
[2022-06-09 21:17] VITALS: BP 139/89
== END | disposition home or self-care (01) ==
PROVIDERS: PCP Family Medicine; Referring Provider Family Medicine; Visit Provider Family Medicine
DX: L03.115 Cellulitis of right lower limb (principal)
CPT/HCPCS: 96365; 96366 ×4; 96368; J7040; A4216

== ENCOUNTER → 2022-06-10 | Outpatient (CLI) | payer MEDICARE, MEDICAID, SELFPAY ==
[2022-06-10] MEDS: 0.9% NaCl PICC Flush IV ×5 (07:59→21:39)
[2022-06-10 08:02] VITALS: BP 137/86; PULSE 81; RESP 16; TEMP 36.4; O2SAT 98
[2022-06-10 10:16] VITALS: BP 146/90; PULSE 78; RESP 16
[2022-06-10 19:20] VITALS: BP 131/78; PULSE 90; RESP 16; TEMP 36.9; O2SAT 95
[2022-06-10 21:42] VITALS: BP 117/74; PULSE 86; RESP 16; TEMP 36.8; O2SAT 98
== END | disposition home or self-care (01) ==
LOC: MEDOUTP 07:36
PROVIDERS: PCP Family Medicine; Referring Provider Family Medicine; Visit Provider Family Medicine
DX: L03.115 Cellulitis of right lower limb (principal)
CPT/HCPCS: 96365; 96366 ×4; 96368; J7040; A4216

== ENCOUNTER → 2022-06-11 | Outpatient (CLI) | payer MEDICARE, MEDICAID, SELFPAY ==
[2022-06-11] MEDS: 0.9% NaCl PICC Flush IV ×5 (07:49→21:08)
[2022-06-11 07:57] VITALS: BP 129/78; PULSE 83; RESP 14; TEMP 36.7; O2SAT 98; BMI 27.2
[2022-06-11 10:18] VITALS: BP 145/83
[2022-06-11 19:02] VITALS: BP 145/83; PULSE 93; RESP 16; TEMP 36.7; O2SAT 99; BMI 27.2
[2022-06-11 21:17] VITALS: BP 142/90; PULSE 83
== END | disposition home or self-care (01) ==
LOC: MEDOUTP 07:40
PROVIDERS: PCP Family Medicine; Referring Provider Family Medicine; Visit Provider Family Medicine
DX: L03.115 Cellulitis of right lower limb (principal)
CPT/HCPCS: 96365; 96366 ×4; 96368; J7040; A4216

== ENCOUNTER → 2022-06-12 | Outpatient (CLI) | payer MEDICARE, MEDICAID, SELFPAY ==
[2022-06-12] MEDS: 0.9% NaCl PICC Flush IV ×3 (08:02→10:33)
[2022-06-12 08:06] VITALS: BP 135/90; PULSE 90; RESP 16; TEMP 36.9; O2SAT 99; BMI 25.8
[2022-06-12 10:40] VITALS: BP 143/86; PULSE 74; RESP 16; TEMP 36.9; O2SAT 98
== END | disposition home or self-care (01) ==
PROVIDERS: PCP Family Medicine; Referring Provider Family Medicine; Visit Provider Family Medicine
DX: L03.115 Cellulitis of right lower limb (principal)
CPT/HCPCS: 96365; 96366 ×2; 96368; J7040; A4216

== ENCOUNTER 2022-06-22 07:15 | Emergency (ER) | payer MEDICARE, MEDICAID, SELFPAY ==
[2022-06-22 07:17] VITALS: BP 124/71; PULSE 90; RESP 17; TEMP 36.3; O2SAT 99; BMI 25.5
--- NOTE | 2022-06-22 07:24 | RAD_ITS ---
STUDY: X-RAY - RIGHT FOOT CLINICAL: Male, 46 years old. Pain and swelling TECHNIQUE: 3 view(s) of the foot. COMPARISON: None. FINDINGS: Normal talus, calcaneus, and tarsal bones. Normal visualized subtalar, talonavicular, calcaneocuboid, tarsal and tarsometatarsal articulations. Normal metatarsi. Normal metatarsophalangeal joint of the great toe. Normal tibial and fibular sesamoid bones. Normal interphalangeal joint of the great toe. Normal phalanges of the great toe. Normal second through fifth metatarsophalangeal joints. Normal interphalangeal joints and phalanges of the lesser toes. The soft tissue structures are unremarkable. RAD/Foot min 3 Views IMPRESSION: Normal x-ray examination of the foot. Electronically Signed: Dario King MD at 8:36 EST ,
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
--- NOTE | 2022-06-22 08:27 | ED.RN ---
THIS RN IN WITH MEDICATION FOR PT. PT REFUSES STATING THERE IS NO EFFICACY IN THAT MEDICATION. PT STATES WHAT I WANT IS 2 MG OF DILAUDID IM . AWARE. WAITING ON X-RAY RESULTS
--- NOTE | 2022-06-22 08:57 | NURSING ---
PT RINGS OUT. PT STATES I HAVE BEEN WAITING HERE FOREVER AND HAVE NOT BEEN TREATED FOR PAIN. THIS RN INFORMED PT THAT PHYSICIAN WAS WAITING ON X-RAY RESULTS. PT STATES IT IS OBVIOUSLY FRACTURED, WE LOOKED AT IT. I NEED PAIN MEDICATION NOW. DR ESCOBEDO
--- NOTE | 2022-06-22 09:56 | CT_ITS ---
STUDY: CT RIGHT FOOT REASON FOR EXAM: Male, 46 years old. Acute pain and swelling RADIATION DOSAGE (If Supplied By Facility): CTDIvol = ( 15.35 ) mGy, DLP = ( 399.82 ) mGycm TECHNIQUE: Thin section transaxial imaging of the foot was obtained, with sagittal and coronal reconstructed images. Individualized dose optimization techniques were used for this CT. COMPARISON: Plain film from earlier today FINDINGS: CT scan shows the bones to be osteopenic more so than the plain film. Normal talus, calcaneus, and tarsal bones. There is evidence of an acute minimally displaced osteochondral fracture of the medial navicular, there is also evidence of an osteochondral fracture in the medial aspect of the lateral cuneiform and also a nondisplaced fracture is present in the base of the fourth metatarsal. There is also evidence of a subtle avulsion fracture in the distal aspect of the lateral calcaneus. There is a minimal amount of soft tissue swelling and in retrospect only the navicular fracture is clearly evident on the plain film of the foot. Normal remaining metatarsi. Normal metatarsophalangeal joint of the great toe. Normal tibial and fibular sesamoid bones. Normal interphalangeal joint of the great toe. Normal phalanges of the great toe. Normal second through fifth metatarsophalangeal joints. Normal interphalangeal joints and phalanges of the lesser toes. CT/Extremity Lower without Contra IMPRESSION: Multiple fractures present on the CT scan that were not seen on the previous plain film of the foot. These include: Osteochondral fractures in the medial navicular, medial aspect of the lateral cuneiform, and base of the fourth metatarsal. There is associated soft tissue swelling. Minimally displaced avulsion fracture present in the distal aspect of the lateral calcaneus with associated soft tissue swelling Joint spaces well-preserved Electronically Signed: Dario King MD at 10:55 EST ,
[2022-06-22] MEDS: HYDROmorphone 1 MG/ML Syringe 2 MG IM (10:11)
[2022-06-22 11:05] VITALS: BP 125/85; PULSE 84; RESP 18; TEMP 36.8; O2SAT 99
== END 2022-06-22 11:06 | disposition home or self-care (01) ==
PROVIDERS: Emergency Provider Emergency Medicine; PCP Family Medicine; Visit Provider Emergency Medicine
DX: S92.251A Displaced fracture of navicular [scaphoid] of right foot, initial encounter for closed fracture (principal); F17.290 Nicotine dependence, other tobacco product, uncomplicated; K21.9 Gastro-esophageal reflux disease without esophagitis; F41.9 Anxiety disorder, unspecified; J45.909 Unspecified asthma, uncomplicated; Z79.899 Other long term (current) drug therapy; W00.0XXA Fall on same level due to ice and snow, initial encounter
CPT/HCPCS: 73630; 73700; 96372; 99283

== ENCOUNTER 2022-06-25 15:39 | Emergency (ER) | payer MEDICARE, SELFPAY ==
[2022-06-25 15:40] VITALS: BP 140/92; PULSE 102; RESP 14; TEMP 36.7; O2SAT 99; BMI 24.7
[2022-06-25] MEDS: HYDROmorphone 1 MG/ML Syringe 2 MG IM (16:24)
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
== END 2022-06-25 16:46 | disposition home or self-care (01) ==
PROVIDERS: Emergency Provider Emergency Medicine; PCP Family Medicine; Visit Provider Emergency Medicine
DX: S92.901A Unspecified fracture of right foot, initial encounter for closed fracture (principal); X58.XXXA Exposure to other specified factors, initial encounter; Z79.82 Long term (current) use of aspirin
CPT/HCPCS: 96372; 99282

== ENCOUNTER → 2022-06-26 | Outpatient (CLI) | payer MEDICARE, SELFPAY ==
--- NOTE | 2022-06-26 13:13 | VDLE_ITS ---
Reason For Study: RLE swelling RIGHT GSV is normal. CFV is compressible, spontaneous, phasic, competent and demonstrates normal augmentation. FV is compressible, spontaneous, phasic, competent and demonstrates normal augmentation. POP V is compressible, spontaneous, phasic, competent and demonstrates normal augmentation. T/P Trunk is compressible. PTV is compressible. RT PerV is compressible. Procedure This is a venous duplex using B-mode, color flow and spectral Doppler. Exam performed in department. The exam was diagnostic. A preliminary report was called and/or faxed to Dr. Simpson @ [phone]. Dr. Medeiros @[phone]. VL/Venous Duplex US, Unilateral Interpretation Summary There is no evidence of right lower extremity deep vein thrombosis. Right great saphenous vein appears patent and compressible segmentally. Ordering Physician: WES SIMPSON Referring Physician: Arnulfo Medeiros Performed By: Pema Ramos, [place], RVT
== END | disposition home or self-care (01) ==
LOC: CVS 13:09
PROVIDERS: PCP Family Medicine
DX: M79.89 Other specified soft tissue disorders (principal)
CPT/HCPCS: 93971

== ENCOUNTER 2022-06-28 21:12 | Inpatient (IN) | payer MEDICARE, MEDICAID, SELFPAY ==
[2022-06-28 21:13] VITALS: BP 144/90; PULSE 90; RESP 16; TEMP 36.7; O2SAT 99; BMI 24.3
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
[2022-06-28 22:14] LABS: Absolute Lymphocyte Count 1.98 X10^3/uL (0.83-4.51); Absolute Neutrophil Count 2.1 X10^3/uL (2.0-7.7); Basophil# 0.03 X10^3/uL; Basophil% 0.6 % (0-1); Eosinophil# 0.28 X10^3/uL; Eosinophils% 5.8 % (0-5); Hematocrit 44.3 % (40-54); Hemoglobin 14.7 g/dL (13.0-16.5); Lymphocyte # 1.98 X10^3/ul (0.83-4.51); Mean Corp Hgb Conc 33.2 g/dL (32-36); Mean Corpuscular Hgb 31.5 pg (27.0-32.0); Mean Corpuscular Volume 95.1 fL (80-94); Mean Platelet Vol. 8.9 fl (6.2-12.0); Monocyte# 0.47 X10^3/uL; Monocyte% 9.7 % (0-10); NRBC Flagged by Analyzer 0 % (0-5); Neutrophil # 2.05 X10^3/uL (2.7-7.7); Neutrophil % 42.5 % (47-70); Platelet Count 202 K/mm3 (150-450); RBC Distribution Width SD 45.3 fl (35.1-43.9); Red Blood Count 4.66 M/mm3 (4.6-6.2); White Blood Count 4.8 K/mm3 (4.4-11.0)
[2022-06-28] MEDS: HYDROmorphone 1 MG/ML Syringe 2 MG IV (22:22)
[2022-06-28 22:31] LABS: Anion Gap 7 (5-15); BUN 11 mg/dL (7-18); BUN/Creat Ratio 7.7 RATIO (10-20); Calcium,Total 8.4 mg/dL (8.5-10.1); Chloride 108 mmol/L (98-107); Creatinine, Serum 1.42 mg/dL (0.70-1.30); EST Glomerular Filtration Rate 57 mL/min (>60); Est Glom Filt Rate - Afr Amer 69 mL/min (>60); Estimated Creatinine Clearance 67.83 ml/min; Glucose 91 mg/dL (74-106); Sodium Level 142 mmol/L (136-145)
[2022-06-28 22:38] LABS: Lactic Acid 1.2 mmol/L (0.4-1.9)
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
--- NOTE | 2022-06-28 22:45 | CT_ITS ---
EXAM: CT RIGHT LOWER EXTREMITY WITHOUT INTRAVENOUS CONTRAST CLINICAL INDICATION: leg pain and edema TECHNIQUE: Helically acquired images were obtained of the right lower extremity without intravenous contrast. 2-D reformats were performed by the technologist. This CT exam was performed using one or more of the following dose reduction techniques: automated exposure control, adjustment of the mA and/or kV according to patient size, and/or use of iterative reconstruction technique. This report was created using [employer] report generation technology. CONTRAST: 75 cc of Isovue-370 IV. RADIATION DOSE: CTDIvol = 15.87 mGy, DLP = 861.82 mGy-cm. COMPARISON: None. FINDINGS: BONES/JOINTS: Unremarkable. No acute fracture. No subluxation. Normal alignment. Preservation of the joint space. No sclerotic or destructive changes. SOFT TISSUES: Moderate subcutaneous edema involving predominantly the leg. Atrophy of the right sartorius, vastus medialis, vastus lateralis, and vastus intermedius muscles. No radiopaque foreign body. REPRODUCTIVE: Peripheral calcification of the testicles bilaterally. CT/Extremity Lower WITH Contrast IMPRESSION: 1. Moderate subcutaneous edema involving predominantly the leg. 2. No discrete fluid collections identified. 3. Atrophy of the right sartorius, vastus medialis, vastus lateralis, and vastus intermedius muscles. 4. Peripheral calcification of the testicles bilaterally. Electronically Signed: Ever Muñiz MD at 0:14 EST ,
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
[2022-06-28] MEDS: proMETHazine 25 MG/ML Syringe IM (23:03)
[2022-06-28] MEDS: HYDROmorphone 1 MG/ML Syringe IV (23:36)
[2022-06-29] VITALS (8 sets, daily range): BP systolic 112–145; BP diastolic 77–93; PULSE 72–83; RESP 16; TEMP 36.6–36.7; O2SAT 94–98; BMI 29.0
--- NOTE | 2022-06-29 01:48 | NURSING ---
Addendum entered by Nayely Barber 06/29/22 02:50: PT EDUCATED ON NEED TO FOLLOW THE PLAN THE DOCTOR HAS MADE FOR PAIN CONTROL. ONLY ONCE THE DOCTORS PLAN IS NOT SUFFICIENT TO MEET PAIN NEEDS WITH THIS RN CALL. PT VERBALIZED UNDERSTANDING. PT REQUESTED TO KNOW ALL PAIN MEDS AND FREQUENCY OF EACH. PT ALSO INFORMED THIS NURSE, MY PAIN WAS SO BAD AT HOME I INJECTED MY FOOT WITH OVER 50 INJECTIONS OF LIDOCAINE TRYING TO GIVE MYSELF A NERVE BLOCK. Original Note: PT VERY ANXIOUS AT THIS TIME, CONCERNED THAT DILAUDID 1MG WILL NOT BE EFFECTIVE TO CONTROL PAIN. REQUESTING THAT THIS RN CALL DOC AND HAVE PAIN MEDS INCREASED TO DILAUDID 2MG EVERY 2 HOURS.
[2022-06-29] MEDS: Furosemide 40 MG/4 ML Vial IV (01:57)
[2022-06-29] MEDS: HYDROmorphone 1 MG/ML Syringe IV ×2 (01:57→05:44)
[2022-06-29] MEDS: Enoxaparin 40 MG/0.4 ML Syringe 80 MG SC (01:57)
[2022-06-29] MEDS: proMETHazine 25 MG Tablet PO ×3 (03:00→20:09)
[2022-06-29] MEDS: oxyCODONE 5 MG Tablet 10 MG PO ×2 (03:00→07:34)
[2022-06-29] MEDS: diazePAM 5 MG Tablet 10 MG PO ×3 (04:14→20:09)
[2022-06-29] MEDS: Ketorolac 30 MG/ML Syringe IV (04:14)
[2022-06-29] MEDS: Gabapentin 100 MG Capsule PO (04:29)
--- NOTE | 2022-06-29 04:35 | NURSING ---
Pt disconnected IV and walked to bathroom. Pt had been educated that he was to call for assist and was NON weight bearing to rt lower leg. Pt educated that this activity will not help his pain level and help the healing process. Pt also educated NOT to mess with IV tubing. Pt verbalized understanding. Pt also requesting that MD come and to bedside and explain why a pain patch was not given at his request. Pt reminded that pain was address and MD did add toradol and gabapendin. Pt states,But I need an explination as to why she did not order a pain patch.
[2022-06-29 06:51] LABS: Absolute Lymphocyte Count 2.24 X10^3/uL (0.83-4.51); Basophil# 0.03 X10^3/uL; Basophil% 0.6 % (0-1); Eosinophil# 0.26 X10^3/uL; Eosinophils% 5.1 % (0-5); Hematocrit 46.6 % (40-54); Hemoglobin 15.5 g/dL (13.0-16.5); Lymphocyte # 2.24 X10^3/ul (0.83-4.51); Lymphocyte % 43.9 % (19-41); Mean Corp Hgb Conc 33.3 g/dL (32-36); Mean Corpuscular Hgb 31.7 pg (27.0-32.0); Mean Corpuscular Volume 95.3 fL (80-94); Mean Platelet Vol. 9.2 fl (6.2-12.0); Monocyte# 0.51 X10^3/uL; NRBC Flagged by Analyzer 0 % (0-5); Neutrophil # 2.02 X10^3/uL (2.7-7.7); Neutrophil % 39.6 % (47-70); Platelet Count 220 K/mm3 (150-450); RBC Distribution Width SD 45.6 fl (35.1-43.9); Red Blood Count 4.89 M/mm3 (4.6-6.2); White Blood Count 5.1 K/mm3 (4.4-11.0)
[2022-06-29 07:42] LABS: ALB/GLOB Ratio 1.1 RATIO (0.9-2.4); AST(SGOT) 52 U/L (15-37); Alanine Aminotransfer ALT/SGPT 43 U/L (16-61); Albumin, Serum 3.3 g/dL (3.2-5.0); Alkaline Phosphatase 42 U/L (45-117); Anion Gap 8 (5-15); BUN 12 mg/dL (7-18); BUN/Creat Ratio 8.6 RATIO (10-20); Calcium,Total 8.3 mg/dL (8.5-10.1); Chloride 106 mmol/L (98-107); Creatinine, Serum 1.39 mg/dL (0.70-1.30); EST Glomerular Filtration Rate 59 mL/min (>60); Est Glom Filt Rate - Afr Amer 71 mL/min (>60); Estimated Creatinine Clearance 69.29 ml/min; Globulin 2.9 g/dL (2.2-4.2); Glucose 101 mg/dL (74-106); Protein, Total 6.2 g/dL (6.4-8.2); Sodium Level 140 mmol/L (136-145)
--- NOTE | 2022-06-29 08:05 | PCM.PN.HOSP ---
Objective Data Objective Data Vital Signs: Vital Signs Temp Pulse Resp BP Pulse Ox O2 Del Method 97.8 F 74 16 145/93 H 96 Room Air 06/29/22 00:04 06/29/22 00:04 06/29/22 00:40 06/29/22 00:04 06/29/22 07:15 06/29/22 07:15 Oxygen Delivery Method Room Air Weight: 205 lb 0.478 oz Body Mass Index (BMI) 29.0 Intake & Output: Intake and Output for Last 24 Hours 06/27/22 06/28/22 06/29/22 23:59 23:59 23:59 Intake Total 1599 / 1599 Output Total 2600 / 2600 Balance -1001 / -1001 Lab / Micro Data Result Diagrams: 06/29/22 06:22 06/29/22 06:22 Labs: Laboratory Results - last 24 hr 06/28/22 22:04: WBC 4.8, RBC 4.66, Hgb 14.7, Hct 44.3, MCV 95.1 H, MCH 31.5, MCHC 33.2, RDW Std Deviation 45.3 H, RDW Coeff of Kandy 13.0, Plt Count 202, MPV 8.9, Immature Gran % (Auto) 0.400, Neut % (Auto) 42.5 L, Lymph % (Auto) 41.0, Weld % (Auto) 9.7, Eos % (Auto) 5.8 H, Baso % (Auto) 0.6, Absolute Neuts (auto) 2.1, Absolute Lymphs (auto) 1.98, Nucleated RBC % 0 06/28/22 22:04: Sodium 142, Potassium 4.0, Chloride 108 H, Carbon Dioxide 27.0, Anion Gap 7, BUN 11, Creatinine 1.42 H, Estim Creat Clear Calc 67.83, Est GFR (MDRD) Af Amer 69, Est GFR (MDRD) Non-Af 57 L, BUN/Creatinine Ratio 7.7 L, Glucose 91, Calcium 8.4 L 06/28/22 22:04: Lactic Acid 1.2 06/29/22 06:22: WBC 5.1, RBC 4.89, Hgb 15.5, Hct 46.6, MCV 95.3 H, MCH 31.7, MCHC 33.3, RDW Std Deviation 45.6 H, RDW Coeff of Kandy 13.0, Plt Count 220, MPV 9.2, Immature Gran % (Auto) 0.800, Neut % (Auto) 39.6 L, Lymph % (Auto) 43.9 H, Weld % (Auto) 10.0, Eos % (Auto) 5.1 H, Baso % (Auto) 0.6, Absolute Neuts (auto) 2.0, Absolute Lymphs (auto) 2.24, Nucleated RBC % 0 06/29/22 06:22: Sodium 140, Potassium 4.0, Chloride 106, Carbon Dioxide 26.0, Anion Gap 8, BUN 12, Creatinine 1.39 H, Estim Creat Clear Calc 69.29, Est GFR (MDRD) Af Amer 71, Est GFR (MDRD) Non-Af 59 L, BUN/Creatinine Ratio 8.6 L, Glucose 101, Calcium 8.3 L, Total Bilirubin 0.50, AST 52 H, ALT 43, Alkaline Phosphatase 42 L, Total Protein 6.2 L, Albumin 3.3, Globulin 2.9, Albumin/Globulin Ratio 1.1 Radiography Diagnostic Testing: Radiology Impression Lower Extremity CT 06/28/22 22:45 IMPRESSION: 1. Moderate subcutaneous edema involving predominantly the leg. 2. No discrete fluid collections identified. 3. Atrophy of the right sartorius, vastus medialis, vastus lateralis, and vastus intermedius muscles. 4. Peripheral calcification of the testicles bilaterally. Electronically Signed: Ever Muñiz MD at 0:14 EST , Physical Exam Narrative Seen and examined Talked about the pain medications in detail. 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 He states he gets rebound pain after 3 hours of Dilaudid therefore wanted continuous coverage. Agreed upon fentanyl 25 mcg every 72 hours with risk and benefits and complications of hypopnea, respiratory failure discussed in detail. He states at home he takes NSAIDs for mild pain 2-3/10 intensity with previous injury of right lower extremity. With infection, cellulitis his pain is 10/10 intensity. No fever Physical exam General: Alert, Oriented x3, Cooperative HEENT: Atraumatic, PERRLA, EOMI, Normocephalic Oral: No Gingival or Mucosal Lesions/ Ulcerations Neck: Supple, No JVD, Negative Carotid Bruits Lungs: Air entry diminished in bilateral lung bases. No crepitation/rhonchi Cardiovascular: Regular rate, Regular Rhythm, Normal S1, Normal S2, No murmurs Abdomen: Bowel Sounds Present, Soft, Non Tender, Non-Distended : No renal angle tenderness. No suprapubic tenderness. Extremities: No edema, Capillary Refill Less than 3 Seconds Skin: Redness, tenderness and induration of right lower leg and foot. No open ulcer. Musculoskeletal: Moderate atrophy of muscles of anterior compartment of right thigh including vastus medialis, lateralis and intermedius. Tenderness present palpation of right foot Neurological: Cranial nerves II-XII grossly intact, DTR 2+/4 and Symmetrical, Neuro grossly intact Psych/Mental Status: Normal Affect, Appropriate. Assessment & Plan Assessment/Plan (1) Cellulitis: PLAN: Plan The patient is a 46 y/o M is being admitted to [facility] floor for evaluation and management of increased edema and pain in the right lower leg with history of right foot fracture consistent with right lower extremity cellulitis #1. Right lower extremity cellulitis status post trauma with fall and multiple fracture of right foot: Right lower extremity CT with IV contrast in the ED which shows moderate subcutaneous edema of the leg with no discrete fluid collection. Atrophy of right sartorius vastus medialis, lateral legs and intermedius muscles. Patient is very rigid that he wants specific pain medications Dilaudid 2 mg. On IV Unasyn. IV Lasix was given in the ED. [facility]. Gabapentin increased to 300 mg 3 times daily. Risk and benefits of opioids dependence and respiratory failure and hypoxemia/dyspnea discussed. Agreed on fentanyl patch 25 mcg every 72 hourly for continuous pain although advised to start with 12.5 mcg. #2. CKD stage II with creatinine clearance about 70 mill per minute: Patient creatinine varies around 1.3, this time slightly elevated 1.39. Toradol dose decreased to 15 mg every 6 hourly. #3. Anxiety and depression: continue patient on diazepam regimen, recommend continued outpatient follow-up and evaluation with therapy as needed as well. #4. Hypertension: Continue home regimen including metoprolol with hold parameters as needed, PRN hydralazine. #5. Restless leg syndrome: We will continue patient on Requip regimen. #6. Chronic asthma: Not on any chronic regimen, encourage tobacco cessation, as needed albuterol, encourage head of bed and I-S. #7. Tobacco Abuse: Encouraged cessation, #8. Hypotestosteronism: Patient is on chronic testosterone regimen, encourage continued outpatient follow-up. #9. Preexposure prophylactic usage: Discussed usage of noted antiviral which patient assures is for prophylaxis and does not have a history of HIV or AIDS. #10. GERD: We will continue patient on PPI. #11. DVT prophylaxis: SCDs, therapeutic Lovenox pending duplex ultrasound. Charges/Coding Visit Charges Inpatient E&M: 10757 Subs Hosp L2
[2022-06-29] MEDS: Azelastine HCl NASAL.SRY 1 SPRAY NASAL ×2 (09:07→21:32)
[2022-06-29] MEDS: fentaNYL 25 MCG Patch TD ×2 (09:07→21:31)
[2022-06-29] MEDS: Acetaminophen 325 MG Tablet 650 MG PO (09:09)
[2022-06-29] MEDS: Metoprolol Tartrate 25 MG Tablet PO ×2 (09:10→21:34)
[2022-06-29] MEDS: Enoxaparin 80 MG/0.8 ML Syringe SC ×2 (09:11→21:34)
[2022-06-29] MEDS: Pantoprazole Sodium 40 MG Tablet PO ×2 (09:11→21:34)
--- NOTE | 2022-06-29 10:00 | CASEMGMT ---
Addendum entered by Shreya Lutz 06/29/22 14:30: XU MCKEON made pt aware that knee scooter through [employer] is $300 to purchase or $25 per week with a $150 deposit. Pt states he will buy one from [employer]. Pt states he would like to use the crutches provided to him, declines need for walker. Original Note: XU MCKEON Assessment: Face to Face with pt for initial transition planning/care coordination assessment. XU MCKEON introduced self and role at [facility], pt voices understanding and consents to assessment. Pt is A/O x4 and answers all questions appropriately at this time. Pt sitting up in bed in no distress. Care providers, pharmacy, and demographics verified/updated. Admitting Dx: RLE cellulitis, concern DVT PCP:Mala Specialists:Ortho at [facility], pt does not know name Preferred Pharmacy: [facility] Retail Insurance: [facility] Prescription Benefit: yes LNOK: Juan José Morley, friend Living Arrangements: Pt lives with a friend who is a nurse in a three story home with 2 steps to enter without a rail or grab bar. Pt reports he is I in ADL's and denies concerns at home. Transportation: Pt drives self and denies concerns with transportation. DME/HHC/SNF: Pt has a cane and boot at home. Pt denies hx of HHC or SNF stays. Pt states no concerns with going home at time of dc. Pt has just recently finished IV antibiotics as an outpt at [facility] Infusion. Pt reports he had a picc line. Pt has crutches and walker in room but states he has not been out of bed. Therapy is not ordered. Message to hospitalist to see if he would like this ordered. Pt is non wt bearing on R LE. Pt asks about knee scooter. He will check wyatt on [employer]. XU MCKEON to call [employer] per his request. Provided pt with a local in network list of DME companies, pt chose [email or web address]. Pt states no further concerns/needs. CM to follow. Advised pt to ask CM if any further question/concerns/needs arise, voices understanding. Pt Goal: Home Plan: Home, follow for DME
[2022-06-29] MEDS: EMTRICITABINE/TENOFOVIR 1 TABLET TABLET PO (11:07)
[2022-06-29] MEDS: HYDROmorphone 1 MG/ML Syringe 2 MG IV ×4 (11:16→23:39)
[2022-06-29] MEDS: Tamoxifen 10 MG Tablet PO ×2 (14:18→21:33)
[2022-06-29] MEDS: Ketorolac 15 MG/ML Vial IV ×2 (14:19→21:35)
[2022-06-29] MEDS: 0.9% Saline Lock 10 ML Syringe IV (15:33)
[2022-06-29] MEDS: Zolpidem Tartrate 5 MG Tablet PO (21:31)
[2022-06-29] MEDS: Pramipexole Di-HCl 1 MG Tablet 1.5 MG PO (21:33)
[2022-06-29 22:11] LABS: M R Staph aureus DNA By PCR Negative (Negative); Probe Check PASS; Specimen Processing Control PASS
[2022-06-30] VITALS (7 sets, daily range): BP systolic 140–154; BP diastolic 90–105; PULSE 69–85; RESP 14–16; TEMP 36.4–36.7; O2SAT 94–97
[2022-06-30] MEDS: HYDROmorphone 1 MG/ML Syringe 2 MG IV ×5 (04:17→20:42)
[2022-06-30] MEDS: proMETHazine 25 MG Tablet PO ×3 (04:18→20:41)
[2022-06-30] MEDS: Tamoxifen 10 MG Tablet PO ×3 (05:08→20:52)
[2022-06-30] MEDS: Ketorolac 15 MG/ML Vial IV ×2 (05:08→14:12)
[2022-06-30] MEDS: Metoprolol Tartrate 25 MG Tablet PO ×2 (08:09→21:01)
[2022-06-30] MEDS: Senna/Docusate Sodium 1 Tablet 2 TABLET PO (08:18)
[2022-06-30] MEDS: Ensure Plus High Protein 120 ML LIQUID PO ×3 (08:22→16:49)
[2022-06-30] MEDS: Pantoprazole Sodium 40 MG Tablet PO ×2 (10:40→20:53)
[2022-06-30] MEDS: EMTRICITABINE/TENOFOVIR 1 TABLET TABLET PO (10:40)
[2022-06-30] MEDS: Azelastine HCl NASAL.SRY 1 SPRAY NASAL (10:41)
[2022-06-30] MEDS: Enoxaparin 80 MG/0.8 ML Syringe SC ×2 (10:41→20:53)
[2022-06-30] MEDS: Acetaminophen 325 MG Tablet 650 MG PO ×3 (10:46→22:01)
[2022-06-30] MEDS: oxyCODONE 5 MG Tablet 10 MG PO ×3 (10:46→22:01)
[2022-06-30] MEDS: Calcium Carbonate 500 MG Tablet 1000 MG PO ×3 (12:48→22:10)
[2022-06-30] MEDS: Polyethylene Glycol 3350 17 GM PACKET PO (14:11)
[2022-06-30] MEDS: diazePAM 5 MG Tablet 10 MG PO ×2 (14:12→20:41)
[2022-06-30] MEDS: 0.9% Saline Lock 10 ML Syringe IV ×3 (14:12→16:39)
--- NOTE | 2022-06-30 16:48 | PCM.PN.HOSP ---
Subjective Subjective States that his leg looks worse today than it did when he came in and that he has the same amount of pain despite the medication that he is on. Objective Data Objective Data Vital Signs: Vital Signs Temp Pulse Resp BP Pulse Ox O2 Del Method 97.7 F L 79 16 143/105 H 97 Room Air 06/30/22 14:01 06/30/22 14:01 06/30/22 14:01 06/30/22 14:01 06/30/22 14:01 06/30/22 14:01 Oxygen Delivery Method Room Air Weight: 205 lb 0.478 oz Body Mass Index (BMI) 29.0 Intake & Output: Intake and Output for Last 24 Hours 06/29/22 06/30/22 07/01/22 03:59 03:59 03:59 Intake Total 1187 / 1187 748 / 748 612 / 612 Output Total 1000 / 1000 3775 / 3775 700 / 700 Balance 187 / 187 -3027 / -3027 -88 / -88 Lab / Micro Data Result Diagrams: 07/01/22 06:22 07/01/22 06:22 Labs: Laboratory Results - last 24 hr 06/29/22 19:45: MRSA (PCR) Negative Physical Exam Narrative General: Alert, Oriented x3, Cooperative, No apparent distress HEENT: Atraumatic, PERRLA, EOMI, Normocephalic Oral: Moist Mucosa Neck: Supple, No JVD Lungs: Clear to auscultation, Normal air movement, No rhonchi, No wheeze, No rales Cardiovascular: Regular rate, Regular Rhythm, Normal S1, Normal S2, No murmurs Abdomen: Soft, Non Tender, Non-Distended, No Hepato-splenomegaly Extremities: Trace edema, Capillary Refill Less than 3 Seconds Skin: No rashes, No breakdown, no erythema or signs of cellulitis, he does have bruising on his distal toes consistent with his foot fracture on the right Musculoskeletal: No Tenderness to Palpation of Joints or Extremities Neurological: Cranial nerves II-XII grossly intact, Motor Exam 5/5 strength throughout, Sensory exam intact to light touch and pain Psych/Mental Status: Normal Affect, Appropriate Assessment & Plan Assessment/Plan (1) Fracture of right foot: PLAN: Plan 1. Right lower extremity pain secondary to foot fracture on 06/22/2022 ? No obvious signs of cellulitis will hold his Unasyn he remains afebrile with no leukocytosis ? Repeat CT scan on admission does show edema but there is no obvious signs of an abscess ? Will obtain a CPK though he states that it is always high ? Will adjust his pain medication and discussed with him extensively the need for outpatient follow-up with possible pain management ? We will discontinue his therapeutic Lovenox as his Doppler ultrasound was negative for DVT 2. Hypertension ? Blood pressure stable to a little bit high secondary to pain ? Continue with his home metoprolol 3. Anxiety/depression ? He states that he has some signs of PTSD from his service ? We will continue with his home medications and recommend outpatient follow-up 4. Hypotestosteronism ? CT scan did note calcifications in his bilateral testicles ? Continue with his home testosterone 5. GERD ? Stable ? Continue with PPI DVT: SCDs Charges/Coding Visit Charges Inpatient E&M: 96551 Subs Hosp L2
[2022-06-30 20:45] LABS: CPK Total, Creatine Kinase 660 U/L (39-308)
[2022-06-30] MEDS: Pramipexole Di-HCl 1 MG Tablet 1.5 MG PO (20:52)
--- NOTE | 2022-06-30 22:01 | NURSING ---
Patient medicated with prn Tums, Tylenol and Oxyir at this time per patient request. Patient showed this RN the alarms he has set on his phone for his prn pain medications through this shift. Has alarms set four more times for prn medications this shift.
[2022-07-01] MEDS: HYDROmorphone 1 MG/ML Syringe 2 MG IV ×3 (01:47→11:36)
[2022-07-01] MEDS: 0.9% Saline Lock 10 ML Syringe IV ×2 (01:47→11:36)
--- NOTE | 2022-07-01 02:03 | NURSING ---
Patient medicated with 2mg Dilaudid IVP at this time. Patient states You do not need to push that slow with me. 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 I don't know why it takes nurses here ten minutes to come in and push these meds.
[2022-07-01 04:50] VITALS: BP 152/90; PULSE 73; RESP 18; TEMP 36.6; O2SAT 94
[2022-07-01] MEDS: oxyCODONE 5 MG Tablet 10 MG PO ×2 (04:50→09:49)
[2022-07-01] MEDS: Tamoxifen 10 MG Tablet PO (04:52)
--- NOTE | 2022-07-01 05:09 | NURSING ---
Nurse went into pts room to administer pain medication. This nurse noted that the patients cell phone alarm was ringing at that time. the pt stated that he sets his alarm to go off so that he doesn't miss a dose of pain medication.
[2022-07-01 06:48] LABS: Absolute Lymphocyte Count 1.48 X10^3/uL (0.83-4.51); Absolute Neutrophil Count 2.6 X10^3/uL (2.0-7.7); Basophil# 0.02 X10^3/uL; Basophil% 0.4 % (0-1); Eosinophil# 0.13 X10^3/uL; Eosinophils% 2.9 % (0-5); Hematocrit 49.8 % (40-54); Hemoglobin 16.4 g/dL (13.0-16.5); Lymphocyte # 1.48 X10^3/ul (0.83-4.51); Lymphocyte % 32.5 % (19-41); Mean Corp Hgb Conc 32.9 g/dL (32-36); Mean Corpuscular Hgb 31.1 pg (27.0-32.0); Mean Corpuscular Volume 94.5 fL (80-94); Mean Platelet Vol. 8.9 fl (6.2-12.0); Monocyte# 0.31 X10^3/uL; Monocyte% 6.8 % (0-10); NRBC Flagged by Analyzer 0 % (0-5); Neutrophil # 2.59 X10^3/uL (2.7-7.7); Platelet Count 187 K/mm3 (150-450); RBC Distribution Width CV 12.9 % (11.6-14.6); RBC Distribution Width SD 44.9 fl (35.1-43.9); Red Blood Count 5.27 M/mm3 (4.6-6.2); White Blood Count 4.6 K/mm3 (4.4-11.0)
[2022-07-01 07:14] LABS: Anion Gap 4 (5-15); BUN 11 mg/dL (7-18); BUN/Creat Ratio 8.7 RATIO (10-20); Calcium,Total 9.3 mg/dL (8.5-10.1); Chloride 105 mmol/L (98-107); Creatinine, Serum 1.27 mg/dL (0.70-1.30); EST Glomerular Filtration Rate 65 mL/min (>60); Est Glom Filt Rate - Afr Amer 79 mL/min (>60); Estimated Creatinine Clearance 75.84 ml/min; Glucose 109 mg/dL (74-106); Potassium 4.7 mmol/L (3.5-5.1); Sodium Level 137 mmol/L (136-145)
[2022-07-01 09:11] VITALS: BP 157/98; PULSE 80; RESP 18; TEMP 36.6; O2SAT 98
--- NOTE | 2022-07-01 09:16 | NURSING ---
pt states because there are 3 different pain meds, we would do the Dilaudid injection and then about 2-3 hours afterwards it would be down to a 2 then it climbs to a 6-9 and then basically i was getting something every 2 hours, having all three of them kept it under pretty decent control. It isn't catastrophically bad right now, I also have the duragesic patch. My patch from the beginning was 'why don't we just do a 50 or 75 duragesic patch instead of the 3-4 other pain medications' this way we can use the morphine index to see what will help keep my pain under control. states i haven't seen a pain management md for a very long time, i don't normally have persistant or chronic pain I deal with.
[2022-07-01] MEDS: Bisacodyl 5 MG Tablet 10 MG PO (09:48)
[2022-07-01 09:49] VITALS: PULSE 80
[2022-07-01] MEDS: proMETHazine 25 MG Tablet PO (09:49)
[2022-07-01] MEDS: Senna/Docusate Sodium 1 Tablet 2 TABLET PO (09:49)
[2022-07-01] MEDS: Acetaminophen 325 MG Tablet 650 MG PO (09:49)
[2022-07-01] MEDS: Metoprolol Tartrate 25 MG Tablet PO (09:49)
[2022-07-01] MEDS: Pantoprazole Sodium 40 MG Tablet PO (09:50)
[2022-07-01] MEDS: Enoxaparin 80 MG/0.8 ML Syringe SC (09:50)
[2022-07-01] MEDS: Azelastine HCl NASAL.SRY 1 SPRAY NASAL (09:50)
[2022-07-01] MEDS: Polyethylene Glycol 3350 17 GM PACKET PO (09:50)
[2022-07-01] MEDS: EMTRICITABINE/TENOFOVIR 1 TABLET TABLET PO (09:50)
--- NOTE | 2022-07-01 10:08 | NURSING ---
Just after taking oral medications pt states please tell me the last time i had Dilaudid because then i can keep track of when it is due again. informed pt of pain management/MAR/safety regimen as prescribed by MD . pt states oh, i know, maybe they will just increase my Duragesic patch. pt conversant, distractable, no facial grimacing/ no withdrawal during assessment of RLE
--- NOTE | 2022-07-01 12:00 | DCINST_ITS ---
Discharge Instructions Diet Discharge Diet: No restrictions Activity Discharge Activity: Return to Normal Activity Dressing / Incision Call your doctor if you observe: Fever of 101 or Higher, Shortness of breath, Dizziness, Fainting spells, Swelling in the ankles, Chest pain and Increased palpitations (irregular heartbeat) Follow Up Care Test Results: Test results from this visit will be discussed in further detail at your follow- up appointment, if applicable. Discharge Plan Admission Admit Date/Time: 06/28/22 22:39 Attending Provider: Tevin Hays Primary Care Provider: Arnulfo Medeiros Consulting Providers: Theresa Canada ; Joaquin Winn Discharge Orders/Prescriptions Prescriptions: New fentanyl 50 mcg/hr patch 72 hour 1 patch transdermal Q72H 9 Days Qty: 3 0RF Continued azelastine 137 mcg (0.1 %) aerosol,spray 1 spray INTRANASAL BID Rx Instructions: administer into each nostril Protonix [address] for susp in packet 40 mg PO QHS potassium chloride 20 mEq tablet,ER particles/crystals 20 meq PO DAILY PRN (Reason: supplement) Truvada 200-300 mg tablet 1 tab PO DAILY albuterol sulfate [Ventolin HFA] 90 mcg/actuation HFA aerosol inhaler 1 inh INHALATION ONCE PRN (Reason: Asthma) zolpidem 12.5 mg tablet,ext release multiphase 12.5 mg PO QHS PRN (Reason: Sleep) tamoxifen 10 mg tablet 10 mg PO QHS zaleplon 10 capsule 10 - 20 mg PO QHS Label Comments: testosterone 1.62 gel in metered-dose pump 1.62 % topical DAILY Label Comments: testosterone cypionate 200 mg/mL kit 200 mg IM KING Rx Instructions: Wednesday metoprolol tartrate 25 MG tablet 25 mg PO BID tramadol 50 mg Tablet 50 mg PO Q6H PRN (Reason: Pain) promethazine 25 mg Tablet 25 mg PO Q6H PRN (Reason: Nausea) diazepam 10 mg Tablet 10 mg PO TID PRN (Reason: Anxiety) oxycodone 10 mg tablet 10 mg PO Q4H PRN PRN (Reason: Pain) Label Comments: Take 1 tablet by mouth every four to six hours while awake as needed for pain ropinirole 3 mg Tablet 3 mg PO QHS Referrals / Follow Up: Eula Heard MD [Med Staff - Active Staff] - 07/08/22 3:30 pm (please arrive 15 minutes before your scheduled appt and bring insurance card(s) and photo ID) Arnulfo Medeiros, [Primary Care Provider] - Disposition Disposition (needs filled in before D/C Order can be placed): Home, Self Care
--- NOTE | 2022-07-01 12:21 | CASEMGMT ---
Addendum entered by Shreya Lutz 07/01/22 13:46: Per charge nurse, pt left floor prior to walker being delivered. Pt also left clothing in room per housekeeping. TC to pt, he states he misunderstood and thought the walker was going to be delivered to his home. He states he will go to the [facility] branch to get the walker. He is aware of clothing left as well. He is aware that if he comes back today, he can get both. He states it may be tomorrow and he will go to [facility] to get the walker and the hospital for the clothing. TC to Bneita at [facility], she states it is fine for him to get the walker at [facility] tomorrow. Original Note: RN CM in to pt room, pt getting dressed. Pt states he feels he now needs a walker for home. Pt requests [facility]. Referral sent via [employer].
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
--- NOTE | 2022-07-07 18:55 | CASEMGMT ---
Notification received on this date of prior authorization needed for Fentanyl patches. Call placed to pt who states he has been working with his PCP to wean down the dosage of these patches and was able to obtain the patches that he has needed. States he has an appointment with a paintless dent repair technician tomorrow. Pt states the swelling has decreased and so has his discomfort. Denies any further needs at this time. Latonya Guthrie RN CM
== END 2022-07-01 12:44 | disposition home or self-care (01) | DRG 948 ==
LOC: ED 22:47 → MS3 06-29 04:22
PROVIDERS: Admitting Provider Family Medicine; Emergency Provider Emergency Medicine; PCP Family Medicine; Visit Provider Family Medicine
DX: G89.11 Acute pain due to trauma (principal); E29.1 Testicular hypofunction; S92.251A Displaced fracture of navicular [scaphoid] of right foot, initial encounter for closed fracture; F17.290 Nicotine dependence, other tobacco product, uncomplicated; S92.221A Displaced fracture of lateral cuneiform of right foot, initial encounter for closed fracture; S92.241A Displaced fracture of medial cuneiform of right foot, initial encounter for closed fracture; S92.341A Displaced fracture of fourth metatarsal bone, right foot, initial encounter for closed fracture; S92.011A Displaced fracture of body of right calcaneus, initial encounter for closed fracture; G25.81 Restless legs syndrome; K21.9 Gastro-esophageal reflux disease without esophagitis; I12.9 Hypertensive chronic kidney disease with stage 1 through stage 4 chronic kidney disease, or unspecified chronic kidney disease; N18.2 Chronic kidney disease, stage 2 (mild); F41.9 Anxiety disorder, unspecified; W01.0XXA Fall on same level from slipping, tripping and stumbling without subsequent striking against object, initial encounter; J45.909 Unspecified asthma, uncomplicated; M79.89 Other specified soft tissue disorders; F32.A Depression, unspecified; F43.10 Post-traumatic stress disorder, unspecified; Z79.891 Long term (current) use of opiate analgesic; Z79.899 Other long term (current) drug therapy
CPT/HCPCS: 36415; 73701; 80048; 80053; 82550; 83605; 85025; 87040; 87641; 93971; 94668; 96372; 97802; 99252; 99282; 99284; J7050; Q9967; A4216; G0463; J0295; J1940

== ENCOUNTER → 2022-08-04 | Outpatient (CLI) | payer MEDICARE, MEDICAID, SELFPAY ==
--- NOTE | 2022-08-04 13:55 | BD_ITS ---
STUDY: DUAL ENERGY X-RAY ABSORPTIOMETRY / DXA REASON FOR EXAM: Male, 46 years old. M810 TECHNIQUE: Bone Mineral Density (BMD) measurements of lumbar spine and bilateral hips were obtained. COMPARISON: None. FINDINGS: Lumbar Spine (L1-L4): g/cm2 (0.842) / T-score (-2.3) / Z-score (-2.0) Findings are suggestive of osteopenia with a high fracture risk. Left Femur Total: g/cm2 (0.892) / T-score (-0.9) / Z-score (-0.7) Left Femoral Neck: g/cm2 (0.724) / T-score (-1.5) / Z-score (-0.9) Right Femur Total: g/cm2 (0.758) / T-score (-1.8) / Z-score (-1.6) Right Femoral Neck: g/cm2 (0.649) / T-score (-2.1) / Z-score (-1.4) BD/Dexa Bone Density Study IMPRESSION: The patient is considered osteopenic as outlined below according to World [employer] Organization (WHO) criteria with a high fracture risk. Reference Information: The T-score is the number of standard deviations above or below the standard which is normal for young adults at their peak bone mineral density. The World Health Organization (WHO) interprets the T-scores as follows: Above -1 Normal bone density Between -1 and -2.5 Osteopenia Equal to / or below -2.5 Osteoporosis As a practical clinical guideline, osteopenia may be graded as follows: Mild -1 through -1.5 Moderate -1.6 through -2.0 Severe -2.1 through -2.4 The Z-score is the number of standard deviations above or below age-matched controls. A Z-score of less than -1.5 would be considered abnormal. References: 1. NIH Osteoporosis and Related Bone Diseases www osteo.org 2. International Society for Clinical Densitometry www iscd.org 3. National Osteoporosis Foundation www nof.org Electronically Signed: Nick Klein MD at 16:37 EST ,
== END | disposition home or self-care (01) ==
LOC: OPBD 13:43
PROVIDERS: PCP Family Medicine; Referring Provider Family Medicine; Visit Provider Family Medicine
DX: M81.0 Age-related osteoporosis without current pathological fracture (principal)
CPT/HCPCS: 77080

== ENCOUNTER → 2022-08-11 | Outpatient (CLI) | payer MEDICARE, MEDICAID, SELFPAY ==
[2022-08-11 17:45] LABS: Color, Urine Yellow (Yellow); Glucose, Dipstick Normal (Normal); Ketone-Dipstick Negative (Negative); Leukocyte Esterase-Dipstick 500 /ul (Negative); Nitrite-Dipstick Positive (Negative); Occult Blood-Urine 10 /ul (Negative); Protein-Dipstick 15 mg/dl (Negative); Urine Bilirubin Dipstick Negative (Negative); Urine Clarity Clear (Clear); Urine Urobilinogen Normal (Normal)
[2022-08-11 17:49] LABS: Absolute Lymphocyte Count 2.32 X10^3/uL (0.83-4.51); Absolute Neutrophil Count 2.5 X10^3/uL (2.0-7.7); Basophil# 0.04 X10^3/uL; Basophil% 0.7 % (0-1); Eosinophil# 0.29 X10^3/uL; Hematocrit 46.5 % (40-54); Hemoglobin 15.4 g/dL (13.0-16.5); Lymphocyte # 2.32 X10^3/ul (0.83-4.51); Mean Corp Hgb Conc 33.1 g/dL (32-36); Mean Corpuscular Hgb 31.4 pg (27.0-32.0); Mean Corpuscular Volume 94.7 fL (80-94); Mean Platelet Vol. 9.6 fl (6.2-12.0); Monocyte# 0.57 X10^3/uL; Monocyte% 9.8 % (0-10); NRBC Flagged by Analyzer 0 % (0-5); Neutrophil # 2.54 X10^3/uL (2.7-7.7); Neutrophil % 43.8 % (47-70); Platelet Count 234 K/mm3 (150-450); RBC Distribution Width CV 13.2 % (11.6-14.6); RBC Distribution Width SD 46.5 fl (35.1-43.9); Red Blood Count 4.91 M/mm3 (4.6-6.2); White Blood Count 5.8 K/mm3 (4.4-11.0)
[2022-08-11 18:24] LABS: ALB/GLOB Ratio 0.9 RATIO (0.9-2.4); AST(SGOT) 53 U/L (15-37); Alanine Aminotransfer ALT/SGPT 93 U/L (16-61); Albumin, Serum 3.2 g/dL (3.2-5.0); Alkaline Phosphatase 61 U/L (45-117); Anion Gap 6 (5-15); BUN 12 mg/dL (7-18); CPK Total, Creatine Kinase 625 U/L (39-308); Calcium,Total 8.8 mg/dL (8.5-10.1); Chloride 105 mmol/L (98-107); Creatinine, Serum 1.09 mg/dL (0.70-1.30); EST Glomerular Filtration Rate 78 mL/min (>60); Est Glom Filt Rate - Afr Amer 94 mL/min (>60); Estradiol 54.8 pg/mL; Follicle Stimulating Hormone 6.3 mIU/mL; Globulin 3.4 g/dL (2.2-4.2); Glucose 98 mg/dL (74-106); Protein, Total 6.6 g/dL (6.4-8.2); Sodium Level 138 mmol/L (136-145); Vitamin D,25 Hydroxy 22.8 ng/mL
[2022-08-12 08:32] LABS: PTHIN 29.3 pg/mL (18.4-80.1)
[2022-08-16 12:08] LABS: Testosterone, Free 16.99 ng/dL (5.00-21.00)
[2022-08-17 12:22] LABS: Testosterone, % Free 1.79 % (1.50-4.20); Testosterone, Total 949 ng/dL (264-916)
== END | disposition home or self-care (01) ==
PROVIDERS: PCP Family Medicine; Visit Provider Family Medicine
DX: N39.0 Urinary tract infection, site not specified (principal); G72.9 Myopathy, unspecified; E29.1 Testicular hypofunction; M80.80XA Other osteoporosis with current pathological fracture, unspecified site, initial encounter for fracture; E55.9 Vitamin D deficiency, unspecified; Z51.81 Encounter for therapeutic drug level monitoring
CPT/HCPCS: 36415; 80053; 81002; 82306; 82550; 82670; 83001; 83970; 84402; 84403; 85025; 87040; 87077; 87086; 87088; 87186

== ENCOUNTER → 2022-08-20 | Outpatient (CLI) | payer MEDICARE, MEDICAID, SELFPAY ==
[2022-08-20 14:15] VITALS: BP 137/97; PULSE 85; RESP 16; TEMP 36.7; O2SAT 99; BMI 26.4
[2022-08-20] MEDS: DENOSUMAB 60 MG/ML SC (14:22)
== END | disposition home or self-care (01) ==
LOC: MEDOUTP 13:54
PROVIDERS: PCP Family Medicine; Referring Provider Family Medicine; Visit Provider Family Medicine
DX: M81.0 Age-related osteoporosis without current pathological fracture (principal)
CPT/HCPCS: 96372; J0897

== ENCOUNTER → 2022-08-31 | Outpatient (CLI) | payer MEDICARE, MEDICAID, SELFPAY ==
[2022-08-31 18:09] LABS: Basophil# 0.05 X10^3/uL; Basophil% 0.9 % (0-1); Eosinophil# 0.14 X10^3/uL; Eosinophils% 2.4 % (0-5); Hematocrit 50.7 % (40-54); Lymphocyte % 35.8 % (19-41); Mean Corp Hgb Conc 33.5 g/dL (32-36); Mean Corpuscular Hgb 30.6 pg (27.0-32.0); Mean Corpuscular Volume 91.2 fL (80-94); Mean Platelet Vol. 9.2 fl (6.2-12.0); Monocyte# 0.59 X10^3/uL; Monocyte% 10.1 % (0-10); NRBC Flagged by Analyzer 0 % (0-5); Neutrophil # 2.97 X10^3/uL (2.7-7.7); Neutrophil % 50.5 % (47-70); Platelet Count 271 K/mm3 (150-450); RBC Distribution Width CV 13.7 % (11.6-14.6); RBC Distribution Width SD 46.4 fl (35.1-43.9); Red Blood Count 5.56 M/mm3 (4.6-6.2); White Blood Count 5.9 K/mm3 (4.4-11.0)
[2022-08-31 18:24] LABS: AST(SGOT) 38 U/L (15-37); Alanine Aminotransfer ALT/SGPT 44 U/L (16-61); Albumin, Serum 3.8 g/dL (3.2-5.0); Alkaline Phosphatase 63 U/L (45-117); Anion Gap 5 (5-15); BUN 10 mg/dL (7-18); Calcium,Total 8.5 mg/dL (8.5-10.1); Chloride 97 mmol/L (98-107); Creatinine, Serum 1.43 mg/dL (0.70-1.30); EST Glomerular Filtration Rate 57 mL/min (>60); Est Glom Filt Rate - Afr Amer 69 mL/min (>60); Glucose 96 mg/dL (74-106); Potassium 3.3 mmol/L (3.5-5.1); Protein, Total 7.8 g/dL (6.4-8.2); Sodium Level 133 mmol/L (136-145)
== END | disposition home or self-care (01) ==
LOC: BFHLAB 15:42
PROVIDERS: PCP Family Medicine; Referring Provider Family Medicine; Visit Provider Family Medicine
DX: L03.115 Cellulitis of right lower limb (principal)
CPT/HCPCS: 36415; 80053; 85025

== ENCOUNTER 2022-09-27 16:14 | Observation (INO) | payer MEDICARE, MEDICAID, SELFPAY ==
[2022-09-27 16:15] VITALS: BP 140/92; PULSE 70; RESP 16; TEMP 36.3; O2SAT 99; BMI 28.8
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
[2022-09-27] MEDS: oxyCODONE 5 MG Tablet PO (16:47)
[2022-09-27 17:06] LABS: Absolute Neutrophil Count 3.7 X10^3/uL (2.0-7.7); Basophil# 0.02 X10^3/uL; Basophil% 0.3 % (0-1); Eosinophil# 0.09 X10^3/uL; Eosinophils% 1.5 % (0-5); Hematocrit 48.9 % (40-54); Lymphocyte % 28.8 % (19-41); Mean Corp Hgb Conc 32.7 g/dL (32-36); Mean Corpuscular Hgb 29.9 pg (27.0-32.0); Mean Corpuscular Volume 91.2 fL (80-94); Mean Platelet Vol. 9.2 fl (6.2-12.0); Monocyte# 0.43 X10^3/uL; Monocyte% 7.3 % (0-10); NRBC Flagged by Analyzer 0 % (0-5); Neutrophil # 3.66 X10^3/uL (2.7-7.7); Neutrophil % 61.9 % (47-70); Platelet Count 215 K/mm3 (150-450); RBC Distribution Width SD 47.2 fl (35.1-43.9); Red Blood Count 5.36 M/mm3 (4.6-6.2); White Blood Count 5.9 K/mm3 (4.4-11.0)
[2022-09-27 17:34] LABS: D-Dimer Quantitative (DVT/PE) 0.28 FEU/ug/m (0.27-0.49)
[2022-09-27 17:44] LABS: Anion Gap 3 (5-15); BUN 10 mg/dL (7-18); BUN/Creat Ratio 8.9 RATIO (10-20); CPK Total, Creatine Kinase 1704 U/L (39-308); Calcium,Total 8.7 mg/dL (8.5-10.1); Chloride 107 mmol/L (98-107); Creatinine, Serum 1.12 mg/dL (0.70-1.30); EST Glomerular Filtration Rate 75 mL/min (>60); Est Glom Filt Rate - Afr Amer 91 mL/min (>60); Glucose 87 mg/dL (74-106); Sodium Level 138 mmol/L (136-145)
--- NOTE | 2022-09-27 18:19 | CT_ITS ---
STUDY: CT RIGHT KNEE HIP TIBIA FIBULA FEMUR AND ANKLE WITH CONTRAST REASON FOR EXAM: Male, 46 years old. rhabdomyolysis -- thigh and lower leg RADIATION DOSAGE (If Supplied By Facility): CTDIvol = ( 15.77 ) mGy, DLP = ( 1719.15 ) mGycm TECHNIQUE: Transaxial CT imaging of the knee was performed post contrast administration. The examination was performed with intravenous administration of 100mL Isovue-370 contrast material. Individualized dose optimization techniques were used for this CT. COMPARISON: 06.28.22 FINDINGS: Soft tissue planes are preserved. There is no fracture. There is no dislocation. There is anatomic alignment. The sacro iliac joint is unremarkable. Femoral head is noted in the acetabulum. Trace free fluid in the pelvis. The source is not identified. There is a silastic tubing or drain extending from the urinary bladder to the penile shaft. There is a penile tubing noted in the shaft of the penis. Right inguinal lymph nodes. Normal medial femoral condyle and medial tibial plateau. There is preservation of the articular joint space of the medial knee compartment.Normal lateral femoral condyle and lateral tibial plateau. There is preservation of the articular joint space of the lateral knee compartment.Normal proximal tibiofibular articulation.There is no joint effusion. There is no demonstrated abnormal enhancement. Moderate subcutaneous edema involving predominantly the leg. Atrophy of the right sartorius, vastus medialis, vastus lateralis, and vastus intermedius muscles.Peripheral calcification of the testicles bilaterally.Normal anterior, lateral, and posterior calf compartments, with normal muscles, crural fascia and intermuscular septa. Normal tibia and fibula, without a periosteal, cortical or cancellous marrow abnormality.Normal visualized distal tibia and fibula. Normal tibiotalar articulation and talar dome. Normal talus, calcaneus, navicular and cuboid tarsal bones. Normal subtalar, talonavicular and calcaneocuboid articulations. Normal navicular-cuneiform, cuneiform tarsal bones and intercuneiform articulations. Normal tarsometatarsal articulations and visualized metatarsi. CT/Extremity Lower WITH Contrast IMPRESSION: Trace free fluid in the pelvis. The source is not identified. Stable muscular atrophy. Stable soft tissue edema around the leg. Electronically Signed: Patrick Almaraz MD at 19:29 EDT ,
[2022-09-27] MEDS: 0.9% Normal Saline 1,000 ML 999 ML IV (18:31)
[2022-09-27] MEDS: HYDROmorphone 1 MG/ML Syringe IV (19:38)
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
--- NOTE | 2022-09-27 20:13 | VDLE_ITS ---
Reason For Study: Swelling RIGHT GSV is normal. CFV is compressible, spontaneous, phasic, competent and demonstrates normal augmentation. FV is compressible, spontaneous, phasic, competent and demonstrates normal augmentation. POP V is compressible, spontaneous, phasic, competent and demonstrates normal augmentation. T/P Trunk is compressible. PTV is compressible. RT PerV is compressible. Procedure This is a venous duplex using B-mode, color flow and spectral Doppler. Exam performed portable in patient room. A preliminary report was called and/or faxed to [facility]. VL/Venous Duplex US, Unilateral Interpretation Summary Deep veins of the right lower extremity are patent and compressible segmentally . There is no evidence of right lower extremity deep vein thrombosis. The right great sapheno us vein appears patent and compressible segmentally. Ordering Physician: Sunny Rivera Referring Physician: Arnulfo Medeiros Performed By: Angie Wallace RVT
[2022-09-27 20:21] VITALS: BP 140/92; PULSE 70; RESP 16; TEMP 36.3; O2SAT 99
[2022-09-27 20:25] VITALS: BMI 27.9
--- NOTE | 2022-09-27 20:28 | ED.RN ---
med list not completed prior to patient being admitted. has home meds that security got from pt's car. also got pt bookbag and knife was placed with security.
[2022-09-27 20:42] VITALS: BP 119/89; PULSE 74; RESP 16; TEMP 37.2; O2SAT 96
[2022-09-27] MEDS: 0.9% Normal Saline 1,000 ML 150 ML IV (21:24)
[2022-09-27] MEDS: HYDROmorphone 1 MG/ML Syringe 2 MG IV (21:30)
[2022-09-27] MEDS: proMETHazine 25 MG Tablet PO (21:30)
--- NOTE | 2022-09-27 23:55 | NURSING ---
Pt's own Buprenorphine and Diazepam counted, locked in med room. Witnessed with Jhoan Hines, slag skimmer
[2022-09-28] MEDS: HYDROmorphone 1 MG/ML Syringe 2 MG IV ×3 (00:43→08:56)
[2022-09-28] MEDS: proCHLORPERazine 10 MG/2 ML Vial 5 MG IV (00:44)
--- NOTE | 2022-09-28 00:51 | NURSING ---
Pt set an alarm on personal cell phone. This RN heard alarm going off right before pt used call light to ask for pain medication.
[2022-09-28 05:10] VITALS: BP 122/78; PULSE 68; RESP 16; TEMP 36.6; O2SAT 98
[2022-09-28] MEDS: 0.9% Normal Saline 1,000 ML 150 ML IV (05:12)
[2022-09-28 05:55] LABS: Absolute Lymphocyte Count 2.06 X10^3/uL (0.83-4.51); Absolute Neutrophil Count 1.3 X10^3/uL (2.0-7.7); Basophil# 0.03 X10^3/uL; Basophil% 0.7 % (0-1); Eosinophil# 0.23 X10^3/uL; Eosinophils% 5.7 % (0-5); Hematocrit 48.2 % (40-54); Hemoglobin 15.6 g/dL (13.0-16.5); Lymphocyte # 2.06 X10^3/ul (0.83-4.51); Mean Corp Hgb Conc 32.4 g/dL (32-36); Mean Corpuscular Volume 92.7 fL (80-94); Mean Platelet Vol. 9.7 fl (6.2-12.0); Monocyte# 0.38 X10^3/uL; Monocyte% 9.4 % (0-10); NRBC Flagged by Analyzer 0 % (0-5); Neutrophil # 1.33 X10^3/uL (2.7-7.7); Platelet Count 206 K/mm3 (150-450); RBC Distribution Width CV 14.2 % (11.6-14.6); RBC Distribution Width SD 48.9 fl (35.1-43.9)
[2022-09-28] MEDS: Albuterol 2.5 MG/3 ML VIAL.NEB. INHALATION (06:15)
[2022-09-28 06:17] VITALS: PULSE 64; RESP 14; O2SAT 92
[2022-09-28 06:49] LABS: Anion Gap 6 (5-15); BUN 8 mg/dL (7-18); BUN/Creat Ratio 7.7 RATIO (10-20); CPK Total, Creatine Kinase 1001 U/L (39-308); Calcium,Total 7.8 mg/dL (8.5-10.1); Chloride 113 mmol/L (98-107); Creatinine, Serum 1.04 mg/dL (0.70-1.30); EST Glomerular Filtration Rate 82 mL/min (>60); Est Glom Filt Rate - Afr Amer 99 mL/min (>60); Estimated Creatinine Clearance 92.61 ml/min; Glucose 83 mg/dL (74-106); Potassium 4.4 mmol/L (3.5-5.1); Sodium Level 144 mmol/L (136-145)
--- NOTE | 2022-09-28 07:51 | PN.HOSP_ITS ---
Reason for Visit Reason for Visit: Diagnoses Essential (primary) hypertension (09/27/22) Rhabdomyolysis (09/27/22) Abnormal levels of other serum enzymes (09/27/22) Objective Data Objective Data Vital Signs: Vital Signs Temp Pulse Resp BP Pulse Ox O2 Del Method 97.9 F 64 14 122/78 H 92 Room Air 09/28/22 05:10 09/28/22 06:17 09/28/22 06:17 09/28/22 05:10 09/28/22 06:17 09/28/22 06:17 Oxygen Delivery Method Room Air Weight: 88.3 kg Body Mass Index (BMI) 27.9 Intake & Output: Intake and Output for Last 24 Hours 09/26/22 09/27/22 09/28/22 23:59 23:59 23:59 Intake Total 1260 / 1260 1600 / 1600 Balance 1260 / 1260 1600 / 1600 Lab / Micro Data Result Diagrams: 09/28/22 05:25 09/28/22 05:25 Labs: Laboratory Results - last 24 hr 09/27/22 17:00: D-Dimer Quant (PE/DVT) 0.28 09/27/22 17:00: Sodium 138, Potassium 4.0, Chloride 107, Carbon Dioxide 28.0, Anion Gap 3 L, BUN 10, Creatinine 1.12, Estim Creat Clear Calc 86.00, Est GFR (MDRD) Af Amer 91, Est GFR (MDRD) Non-Af 75, BUN/Creatinine Ratio 8.9 L, Glucose 87, Calcium 8.7, Total Creatine Kinase 1704 H 09/27/22 17:00: WBC 5.9, RBC 5.36, Hgb 16.0, Hct 48.9, MCV 91.2, MCH 29.9, MCHC 32.7, RDW Std Deviation 47.2 H, RDW Coeff of Kandy 14.0, Plt Count 215, MPV 9.2, Immature Gran % (Auto) 0.200, Neut % (Auto) 61.9, Lymph % (Auto) 28.8, [place] % (Auto) 7.3, Eos % (Auto) 1.5, Baso % (Auto) 0.3, Absolute Neuts (auto) 3.7, Absolute Lymphs (auto) 1.70, Nucleated RBC % 0 09/28/22 05:25: WBC 4.0 L, RBC 5.20, Hgb 15.6, Hct 48.2, MCV 92.7, MCH 30.0, MCHC 32.4, RDW Std Deviation 48.9 H, RDW Coeff of Kandy 14.2, Plt Count 206, MPV 9.7, Immature Gran % (Auto) 0.200, Neut % (Auto) 33.0 L, Lymph % (Auto) 51.0 H, [place] % (Auto) 9.4, Eos % (Auto) 5.7 H, Baso % (Auto) 0.7, Absolute Neuts (auto) 1.3 L, Absolute Lymphs (auto) 2.06, Nucleated RBC % 0 09/28/22 05:25: Sodium 144, Potassium 4.4, Chloride 113 H, Carbon Dioxide 25.0, Anion Gap 6, BUN 8, Creatinine 1.04, Estim Creat Clear Calc 92.61, Est GFR (MDRD) Af Amer 99, Est GFR (MDRD) Non-Af 82, BUN/Creatinine Ratio 7.7 L, Glucose 83, Calcium 7.8 L, Total Creatine Kinase 1001 H Radiography Diagnostic Testing: Radiology Impression Lower Extremity CT 09/27/22 18:19 IMPRESSION: Trace free fluid in the pelvis. The source is not identified. Stable muscular atrophy. Stable soft tissue edema around the leg. Electronically Signed: Patrick Almaraz MD at 19:29 EDT Reading Location ID and State: [address] [place] [address] , Service support , Physical Exam Narrative Physical exam: General: Well-nourished, well-developed. Head: Normocephalic, atraumatic, no tenderness Eyes: Vision is grossly intact. EOMI ENT, no trauma, moist mucous membranes, no rhinorrhea Neck: Nontender, No thyromegaly. CVS: Regular rate and rhythm. S1-S2 present. No murmur, gallop or rub. Respiratory : clear to auscultation bilaterally, chest wall nontender Abdomen: Soft, nontender, nondistended, normal bowel sounds, no masses : Deferred Back: Nontender, no CVA tenderness, no midline spinal tenderness, deformities, step-offs Extremities: Tenderness and swelling of right leg and right hip. Skin: Normal color, no trauma, abrasions Neuro: Alert, oriented, cranial nerves II through XII grossly intact. Psychiatry: Normal mood. Normal affect. Not depressed. Not anxious. Assessment & Plan Assessment/Plan (1) Elevated creatine kinase: (2) Rhabdomyolysis: (3) HTN (hypertension): PLAN: Plan Elevated creatinine /rhabdomyolysis Acute on chronic. Patient had work-up in the past. CPK on presentation was 1704. Highest on file so far. Creatinine is normal within goal. We will treat with IV fluids at this time. Will trend CPK Acute on chronic complex regional pain syndrome Patient was requesting to get ketamine IV infusion. However there is a shortage in the country and at the hospital so pharmacy is unable to provide at this time. Patient received valproic acid x1 in the emergency department. Patient requesting a propofol infusion; will be administered. Discussed with patient's on p.o. Dilaudid. However patient insistent that he wants IV Dilaudid 2 mg IV every 2 hours. Will order Dilaudid 2 mg IV every 3 hours. Hypertension Blood pressure is not within goal Home blood pressure medication continued. Trend blood pressure and adjust blood pressure medications. DVT prophylaxis: Subcutaneous Lovenox ordered
--- NOTE | 2022-09-28 07:51 | PCM.PN.HOSP ---
Reason for Visit Reason for Visit: Diagnoses Essential (primary) hypertension (09/27/22) Rhabdomyolysis (09/27/22) Abnormal levels of other serum enzymes (09/27/22) Subjective Subjective Patient is a 46-year-old gentleman with past medical history significant for complex regional pain syndrome admitted with right lower extremity pain Objective Data Objective Data Vital Signs: Vital Signs Temp Pulse Resp BP Pulse Ox O2 Del Method 97.9 F 64 14 122/78 H 92 Room Air 09/28/22 05:10 09/28/22 06:17 09/28/22 06:17 09/28/22 05:10 09/28/22 06:17 09/28/22 06:17 Oxygen Delivery Method Room Air Weight: 88.3 kg Body Mass Index (BMI) 27.9 Intake & Output: Intake and Output for Last 24 Hours 09/26/22 09/27/22 09/28/22 23:59 23:59 23:59 Intake Total 1260 / 1260 1600 / 1600 Balance 1260 / 1260 1600 / 1600 Lab / Micro Data Result Diagrams: 09/28/22 05:25 09/28/22 05:25 Labs: Laboratory Results - last 24 hr 09/27/22 17:00: D-Dimer Quant (PE/DVT) 0.28 09/27/22 17:00: Sodium 138, Potassium 4.0, Chloride 107, Carbon Dioxide 28.0, Anion Gap 3 L, BUN 10, Creatinine 1.12, Estim Creat Clear Calc 86.00, Est GFR (MDRD) Af Amer 91, Est GFR (MDRD) Non-Af 75, BUN/Creatinine Ratio 8.9 L, Glucose 87, Calcium 8.7, Total Creatine Kinase 1704 H 09/27/22 17:00: WBC 5.9, RBC 5.36, Hgb 16.0, Hct 48.9, MCV 91.2, MCH 29.9, MCHC 32.7, RDW Std Deviation 47.2 H, RDW Coeff of Kandy 14.0, Plt Count 215, MPV 9.2, Immature Gran % (Auto) 0.200, Neut % (Auto) 61.9, Lymph % (Auto) 28.8, [place] % (Auto) 7.3, Eos % (Auto) 1.5, Baso % (Auto) 0.3, Absolute Neuts (auto) 3.7, Absolute Lymphs (auto) 1.70, Nucleated RBC % 0 09/28/22 05:25: WBC 4.0 L, RBC 5.20, Hgb 15.6, Hct 48.2, MCV 92.7, MCH 30.0, MCHC 32.4, RDW Std Deviation 48.9 H, RDW Coeff of Kandy 14.2, Plt Count 206, MPV 9.7, Immature Gran % (Auto) 0.200, Neut % (Auto) 33.0 L, Lymph % (Auto) 51.0 H, [place] % (Auto) 9.4, Eos % (Auto) 5.7 H, Baso % (Auto) 0.7, Absolute Neuts (auto) 1.3 L, Absolute Lymphs (auto) 2.06, Nucleated RBC % 0 09/28/22 05:25: Sodium 144, Potassium 4.4, Chloride 113 H, Carbon Dioxide 25.0, Anion Gap 6, BUN 8, Creatinine 1.04, Estim Creat Clear Calc 92.61, Est GFR (MDRD) Af Amer 99, Est GFR (MDRD) Non-Af 82, BUN/Creatinine Ratio 7.7 L, Glucose 83, Calcium 7.8 L, Total Creatine Kinase 1001 H Radiography Diagnostic Testing: Radiology Impression Lower Extremity CT 09/27/22 18:19 IMPRESSION: Trace free fluid in the pelvis. The source is not identified. Stable muscular atrophy. Stable soft tissue edema around the leg. Electronically Signed: Patrick Almaraz MD at 19:29 EDT Reading Location ID and State: [facility] / [place] , Service support , Physical Exam Narrative GENERAL: cooperative HEENT: Atraumatic; normocephalic EYES; Anicteric, Normal Conjunctiva NECK; supple, normal thyroid, RESPIRATORY: Diminished to auscultation CARDIOVASCULAR: Regular S1 S2, GI: soft, normoactive bowel sounds, : No Renal angle tenderness; EXTREMITIES: No edema, no clubbing, MUSCULOSKELETAL: no muscle wasting NEURO: Awake; no lateralizing signs. SKIN: No Rash PSYCH; Flat affect Assessment & Plan Assessment/Plan (1) Elevated creatine kinase: (2) Rhabdomyolysis: (3) HTN (hypertension): PLAN: Plan Patient is a 46-year-old gentleman with past medical history significant for complex regional pain syndrome admitted with right lower extremity pain 1.? Acute on chronic complex regional pain syndrome ? Patient apparently received ketamine and propofol every 2 weeks at [facility].? Patient was managed with Dilaudid 2.? Acute rhabdomyolysis Outpatient management IV fluids with improvement in CPK levels 3.? Hypertension - Blood pressure controlled, home medications continued with dose adjustment as needed 4.? GERD ? Patient is on PPI Time spent in the patient's overall evaluation,decision-making process, review of diagnostic data, adjustment of management, discussion with other providers, nursing nursing and ancillary staff involved in patient's care documentation, 35 Minutes Charges/Coding Visit Charges Inpatient E&M: 86000 [facility] Hosp L2
[2022-09-28 08:43] VITALS: O2SAT 93
[2022-09-28 09:00] VITALS: BP 102/76; PULSE 66; RESP 18; TEMP 36.4; O2SAT 94
--- NOTE | 2022-09-28 09:55 | PCM.DC.SUM ---
Providers Date of Admission: 09/27/22 Date of Discharge: 09/28/22 Primary Care Physician: Dr. Arnulfo Medeiros DO Reason For Visit: RHABODOMYOLYSIS Diagnosis Discharge Diagnosis (1) Elevated creatine kinase: Status: Acute Code(s): R74.8 - Abnormal levels of other serum enzymes (2) Rhabdomyolysis: Status: Acute Code(s): M62.82 - Rhabdomyolysis (3) HTN (hypertension): Status: Chronic Code(s): I10 - Essential (primary) hypertension Plan Elevated creatinine /rhabdomyolysis Acute on chronic. Patient had work-up in the past. CPK on presentation was 1704. Highest on file so far. Creatinine is normal within goal. We will treat with IV fluids at this time. Will trend CPK Acute on chronic complex regional pain syndrome Patient was requesting to get ketamine IV infusion. However there is a shortage in the country and at the hospital so pharmacy is unable to provide at this time. Patient received valproic acid x1 in the emergency department. Patient requesting a propofol infusion; will be administered. Discussed with patient's on p.o. Dilaudid. However patient insistent that he wants IV Dilaudid 2 mg IV every 2 hours. Will order Dilaudid 2 mg IV every 3 hours. Hypertension Blood pressure is not within goal Home blood pressure medication continued. Trend blood pressure and adjust blood pressure medications. DVT prophylaxis: Subcutaneous Lovenox ordered Medications at Discharge Home Medications albuterol sulfate 90 mcg/actuation aerosol inhaler (Ventolin HFA) 1 inh inhalation ONCE PRN Asthma 02/13/20 azelastine 137 mcg (0.1 %) nasal spray aerosol 1 spray intranasal BID PRN check with primary 02/13/20 emtricitabine 200 mg-tenofovir disoproxil fumarate 300 mg tablet (Truvada) 1 tab PO DAILY Check with primary doctor 02/13/20 pantoprazole 40 mg granules delayed-release for susp in packet (Protonix) 40 mg PO QHS GERD 02/13/20 potassium chloride 20 mEq tablet,extended release(part/cryst) 20 meq PO DAILY PRN supplement 02/13/20 testosterone cypionate 200 mg/mL intramuscular kit 150 mg IM FR Check with primary doctor 02/13/20 metoprolol tartrate 25 mg tablet 100 mg PO BID heart rate 02/23/20 diazepam 10 mg tablet 10 mg PO TID PRN Anxiety 06/02/22 promethazine 25 mg tablet 25 mg PO Q6H PRN Nausea 06/02/22 ropinirole 3 mg tablet 3 mg PO QHS PRN restless legs 06/28/22 buprenorphine HCl 2 mg sublingual tablet 4 mg sublingual DAILY Check with primary doctor 09/27/22 quetiapine 50 mg tablet (Seroquel) 150 mg PO QHS sleep 09/27/22 somatropin 1.6 mg subcut DAILY HGH 09/27/22 Hospital Course Summary of Care Provided Minutes Spent on Discharge: 35 Hospital Course: Patient is a 46-year-old gentleman with past medical history significant for complex regional pain syndrome admitted with right lower extremity pain 1. Acute on chronic complex regional pain syndrome ? Patient apparently received ketamine and propofol every 2 weeks at [facility]. Patient was managed with Dilaudid 2. Acute rhabdomyolysis Outpatient management IV fluids with improvement in CPK levels 3. Hypertension - Blood pressure controlled, home medications continued with dose adjustment as needed 4. GERD ? Patient is on PPI Physical Exam Narrative GENERAL: cooperative HEENT: Atraumatic; normocephalic EYES; Anicteric, Normal Conjunctiva NECK; supple, normal thyroid, RESPIRATORY: Diminished to auscultation CARDIOVASCULAR: Regular S1 S2, GI: soft, normoactive bowel sounds, : No Renal angle tenderness; EXTREMITIES: No edema, no clubbing, MUSCULOSKELETAL: no muscle wasting NEURO: Awake; no lateralizing signs. SKIN: No Rash PSYCH; Flat affect Weight / BMI Weight Weight: 88.3 kg Body Mass Index (BMI) 27.9 ABG / Lab / Microbiology Data Result Diagrams: 09/28/22 05:25 09/28/22 05:25 Laboratory: Laboratory Results - last 24 hr 09/27/22 17:00: D-Dimer Quant (PE/DVT) 0.28 09/27/22 17:00: Sodium 138, Potassium 4.0, Chloride 107, Carbon Dioxide 28.0, Anion Gap 3 L, BUN 10, Creatinine 1.12, Estim Creat Clear Calc 86.00, Est GFR (MDRD) Af Amer 91, Est GFR (MDRD) Non-Af 75, BUN/Creatinine Ratio 8.9 L, Glucose 87, Calcium 8.7, Total Creatine Kinase 1704 H 09/27/22 17:00: WBC 5.9, RBC 5.36, Hgb 16.0, Hct 48.9, MCV 91.2, MCH 29.9, MCHC 32.7, RDW Std Deviation 47.2 H, RDW Coeff of Kandy 14.0, Plt Count 215, MPV 9.2, Immature Gran % (Auto) 0.200, Neut % (Auto) 61.9, Lymph % (Auto) 28.8, [place] % (Auto) 7.3, Eos % (Auto) 1.5, Baso % (Auto) 0.3, Absolute Neuts (auto) 3.7, Absolute Lymphs (auto) 1.70, Nucleated RBC % 0 09/28/22 05:25: WBC 4.0 L, RBC 5.20, Hgb 15.6, Hct 48.2, MCV 92.7, MCH 30.0, MCHC 32.4, RDW Std Deviation 48.9 H, RDW Coeff of Kandy 14.2, Plt Count 206, MPV 9.7, Immature Gran % (Auto) 0.200, Neut % (Auto) 33.0 L, Lymph % (Auto) 51.0 H, [place] % (Auto) 9.4, Eos % (Auto) 5.7 H, Baso % (Auto) 0.7, Absolute Neuts (auto) 1.3 L, Absolute Lymphs (auto) 2.06, Nucleated RBC % 0 09/28/22 05:25: Sodium 144, Potassium 4.4, Chloride 113 H, Carbon Dioxide 25.0, Anion Gap 6, BUN 8, Creatinine 1.04, Estim Creat Clear Calc 92.61, Est GFR (MDRD) Af Amer 99, Est GFR (MDRD) Non-Af 82, BUN/Creatinine Ratio 7.7 L, Glucose 83, Calcium 7.8 L, Total Creatine Kinase 1001 H Radiography Diagnostic Testing: Radiology Impression Lower Extremity CT 09/27/22 18:19 IMPRESSION: Trace free fluid in the pelvis. The source is not identified. Stable muscular atrophy. Stable soft tissue edema around the leg. Electronically Signed: Patrick Almaraz MD at 19:29 EDT Reading Location ID and State: [facility] / [place] , Service support , D/C Instructions Discharge Diet: No restrictions Discharge Activity: Return to Normal Activity Call your doctor if you observe: Fever of 101 or Higher, Shortness of breath, Fainting spells and Chest pain Meaningful Use Info Meaningful Use Diagnoses (Choose all that apply): None applicable Discharge Plan Admission Admit Date/Time: 09/27/22 19:44 Attending Provider: Pedro Milan Primary Care Provider: Arnulfo Medeiros Consulting Providers: Sunny Rivera Discharge Orders/Prescriptions Prescriptions: Continued azelastine 137 mcg (0.1 %) aerosol,spray 1 spray INTRANASAL BID PRN (Reason: check with primary) Rx Instructions: administer into each nostril Protonix [address] for susp in packet 40 mg PO QHS potassium chloride 20 mEq tablet,ER particles/crystals 20 meq PO DAILY PRN (Reason: supplement) Truvada 200-300 mg tablet 1 tab PO DAILY albuterol sulfate [Ventolin HFA] 90 mcg/actuation HFA aerosol inhaler 1 inh INHALATION ONCE PRN (Reason: Asthma) testosterone cypionate 200 mg/mL kit 150 mg IM FR metoprolol tartrate 25 MG tablet 100 mg PO BID promethazine 25 mg Tablet 25 mg PO Q6H PRN (Reason: Nausea) diazepam 10 mg Tablet 10 mg PO TID PRN (Reason: Anxiety) ropinirole 3 mg Tablet 3 mg PO QHS PRN (Reason: restless legs) buprenorphine HCl 2 mg Tablet, Sublingual 4 mg SUBLINGUAL DAILY quetiapine [Seroquel] 50 mg Tablet 150 mg PO QHS somatropin 1.5 (4 unit) mg Cartridge 1.6 mg SUBCUT DAILY Referrals / Follow Up: Arnulfo Medieros DO [Primary Care Provider] - Within 2 Weeks Disposition Disposition (needs filled in before D/C Order can be placed): Home, Self Care Charges/Coding Visit Charges Inpatient E&M: 01708 Disch Hosp >30min
--- NOTE | 2022-09-28 10:38 | PHA.DC.MR ---
Pharmacy Service has performed discharge medication reconciliation for this patient. The patient's discharge medication list was reviewed for discrepancies and discrepancies were resolved. Home Medications albuterol sulfate 90 mcg/actuation aerosol inhaler (Ventolin HFA) 1 inh inhalation ONCE PRN Asthma 02/13/20 azelastine 137 mcg (0.1 %) nasal spray aerosol 1 spray intranasal BID PRN check with primary 02/13/20 emtricitabine 200 mg-tenofovir disoproxil fumarate 300 mg tablet (Truvada) 1 tab PO DAILY Check with primary doctor 02/13/20 pantoprazole 40 mg granules delayed-release for susp in packet (Protonix) 40 mg PO QHS GERD 02/13/20 potassium chloride 20 mEq tablet,extended release(part/cryst) 20 meq PO DAILY PRN supplement 02/13/20 testosterone cypionate 200 mg/mL intramuscular kit 150 mg IM FR Check with primary doctor 02/13/20 metoprolol tartrate 25 mg tablet 100 mg PO BID heart rate 02/23/20 diazepam 10 mg tablet 10 mg PO TID PRN Anxiety 06/02/22 promethazine 25 mg tablet 25 mg PO Q6H PRN Nausea 06/02/22 ropinirole 3 mg tablet 3 mg PO QHS PRN restless legs 06/28/22 buprenorphine HCl 2 mg sublingual tablet 4 mg sublingual DAILY Check with primary doctor 09/27/22 quetiapine 50 mg tablet (Seroquel) 150 mg PO QHS sleep 09/27/22 somatropin 1.6 mg subcut DAILY HGH 09/27/22
== END 2022-09-28 11:18 | disposition home or self-care (01) ==
LOC: ED 19:36 → MS3 20:19
PROVIDERS: Admitting Provider Hospitalist; Emergency Provider Emergency Medicine; PCP Family Medicine; Visit Provider Internal Medicine
DX: M62.82 Rhabdomyolysis (principal); I10 Essential (primary) hypertension; R74.8 Abnormal levels of other serum enzymes; G90.521 Complex regional pain syndrome I of right lower limb; Z79.899 Other long term (current) drug therapy; Z79.810 Long term (current) use of selective estrogen receptor modulators (SERMs); K21.9 Gastro-esophageal reflux disease without esophagitis; R60.0 Localized edema; M79.89 Other specified soft tissue disorders; J45.909 Unspecified asthma, uncomplicated; F17.290 Nicotine dependence, other tobacco product, uncomplicated
CPT/HCPCS: 36415; 73701; 80048; 82550; 85025; 85379; 93971; 94640; 96361; 96365; 96366; 96375; 96376; 99221; 99284; 99406; J7030; Q9967; A4216; G0378

== ENCOUNTER 2023-02-19 13:50 | Outpatient (CLI) | payer MEDICARE, MEDICAID, SELFPAY ==
[2023-02-19 14:00] VITALS: BP 128/75; PULSE 85; RESP 16; TEMP 36.2; O2SAT 99; BMI 23.9
[2023-02-19] MEDS: DENOSUMAB 60 MG/ML SC (14:02)
== END 2023-02-19 13:51 | disposition home or self-care (01) ==
LOC: MEDOUTP 13:50
PROVIDERS: PCP Family Medicine; Referring Provider Family Medicine; Visit Provider Family Medicine
DX: M81.0 Age-related osteoporosis without current pathological fracture (principal)
CPT/HCPCS: 96372; J0897